=== PATIENT | male | born 1935 | race Two or more races ===

== ENCOUNTER → 2016-08-15 | Outpatient (CLI) | payer OTHER ==
[~2016-08-15] MED LIST: ASPI81CH43; B COTAB20; BENA20TA4; CALC-312; CARB200T4; CHOL10006; GLIP-116; METF100097; METO25TA3; SIMV10TA84; SITA100T7
== END | disposition home or self-care (01) ==
LOC: LAB 08:27
DX: C61 Malignant neoplasm of prostate (principal)
CPT/HCPCS: 84153

== ENCOUNTER → 2016-11-14 | Outpatient (CLI) | payer OTHER ==
[2016-11-14 08:09] LABS: Basophils # (auto) 0 uL; Basophils % (auto) 0.5 % (0.0-2.0); Eosinophils # (auto) 0.2 uL; Eosinophils % (auto) 3.9 % (0.0-7.0); Hematocrit 39.9 % (41.0-53.0); Hemoglobin 13.8 g/dL (13.5-17.5); Lymphocytes # (auto) 1.6 uL; Lymphocytes % (auto) 26.1 % (10.0-50.0); Mean Corpuscular Hemoglobin 32.6 pg (28.0-32.0); Mean Corpuscular Hgb Conc. 34.5 g/dL (32.0-36.0); Mean Corpuscular Volume 94.5 fL (80.0-100.0); Mean Platelet Volume 6.7 fL (7.4-10.4); Monocytes # (auto) 0.3 uL; Monocytes % (auto) 4.9 % (0.0-12.0); Neutrophils # (auto) 4.1 uL; Neutrophils % (auto) 64.6 % (37.0-80.0); Platelet Count (auto) 210 10^3/uL (140-450); Red Cell Distribution Width 14.8 % (11.6-16.0); White Blood Cell 6.3 10^3/uL (4.4-10.8)
[2016-11-14 08:21] LABS: Urine Bilirubin Negative (Negative); Urine Blood Negative /uL (Negative); Urine Color Yellow (Yellow); Urine Glucose Normal (Normal); Urine Ketone Negative (Negative); Urine Nitrite Negative (Negative); Urine RBC <1 /hpf (0 - 3); Urine Urobilinogen Normal (Negative); Urine pH 6.5 (5.0-8.0)
[2016-11-14 08:22] LABS: Albumin 3.8 g/dL (3.4-5.0); BUN/Creatinine Ratio 16.3; Bilirubin, Total 0.6 mg/dL (0.2-1.0); Potassium 4.4 mmol/L (3.5-5.1); Total Protein 7.9 g/dL (6.4-8.2)
[2016-11-14 08:25] LABS: INR 0.94 (0.9-1.15); Partial Thromboplastin Time 28.9 sec (22.64-33.71); Prothrombin Time 10.2 sec (9.37-12.3)
== END | disposition home or self-care (01) ==
LOC: LAB 07:45
PROVIDERS: ATTEND Family Medicine
DX: E78.5 Hyperlipidemia, unspecified (principal)
CPT/HCPCS: 36415; 80053; 80061; 81001; 82043; 83036; 85025; 85610; 85730

== ENCOUNTER → 2017-03-15 | Outpatient (CLI) | payer OTHER ==
[~2017-03-15] MED LIST changes: +BENA20TA14; -BENA20TA4
[2017-03-15 10:07] LABS: Urine Bilirubin Negative (Negative); Urine Blood Negative /uL (Negative); Urine Color Yellow (Yellow); Urine Glucose Normal (Normal); Urine Ketone Negative (Negative); Urine Nitrite Negative (Negative); Urine RBC <1 /hpf (0 - 3); Urine Urobilinogen Normal (Negative)
[2017-03-15 10:08] LABS: Basophils # (auto) 0.1 uL; Basophils % (auto) 1.1 % (0.0-2.0); Eosinophils # (auto) 0.2 uL; Eosinophils % (auto) 2.7 % (0.0-7.0); Hematocrit 38.7 % (41.0-53.0); Hemoglobin 13.3 g/dL (13.5-17.5); Lymphocytes # (auto) 1.5 uL; Lymphocytes % (auto) 25.2 % (10.0-50.0); Mean Corpuscular Hemoglobin 32.6 pg (28.0-32.0); Mean Corpuscular Hgb Conc. 34.4 g/dL (32.0-36.0); Mean Corpuscular Volume 94.7 fL (80.0-100.0); Mean Platelet Volume 6.8 fL (6.9-10.8); Monocytes # (auto) 0.3 uL; Monocytes % (auto) 5.6 % (0.0-12.0); Neutrophils # (auto) 3.9 uL; Neutrophils % (auto) 65.4 % (37.0-80.0); Platelet Count (auto) 167 10^3/uL (140-450); Red Cell Distribution Width 14.8 % (11.8-14.3)
[2017-03-15 10:30] LABS: Albumin 3.8 g/dL (3.4-5.0); BUN/Creatinine Ratio 22.1; Bilirubin, Total 0.6 mg/dL (0.2-1.0); Calcium 8.7 mg/dL (8.5-10.1); Potassium 4.1 mmol/L (3.5-5.1); Total Protein 7.5 g/dL (6.4-8.2)
== END | disposition home or self-care (01) ==
LOC: LAB 09:36
PROVIDERS: ATTEND Family Medicine
DX: N39.0 Urinary tract infection, site not specified (principal)
CPT/HCPCS: 36415; 80053; 81001; 85025; 87086

== ENCOUNTER → 2017-05-07 | Outpatient (CLI) | payer OTHER | END | disposition home or self-care (01) | LOC: LAB 07:40 | PROVIDERS: ATTEND Family Medicine | DX: C61 Malignant neoplasm of prostate (principal); E11.9 Type 2 diabetes mellitus without complications; I10 Essential (primary) hypertension | CPT/HCPCS: 84153 ==

== ENCOUNTER → 2017-08-29 | Outpatient (CLI) | payer OTHER | END | disposition home or self-care (01) | LOC: LAB 08:22 | PROVIDERS: ATTEND Family Medicine | DX: E11.9 Type 2 diabetes mellitus without complications (principal) | CPT/HCPCS: 36415; 83036 ==

== ENCOUNTER → 2017-10-11 | Outpatient (CLI) | payer OTHER | END | disposition home or self-care (01) | LOC: LAB 08:06 | PROVIDERS: ATTEND Family Medicine | DX: C61 Malignant neoplasm of prostate (principal); E11.9 Type 2 diabetes mellitus without complications; I10 Essential (primary) hypertension; E78.5 Hyperlipidemia, unspecified; Z79.899 Other long term (current) drug therapy; Z79.82 Long term (current) use of aspirin | CPT/HCPCS: 84153 ==

== ENCOUNTER → 2018-02-05 | Outpatient (CLI) | payer OTHER ==
[~2018-02-05] MED LIST changes: -METO25TA3; +METO25TA4
== END | disposition home or self-care (01) ==
LOC: XY 08:56
PROVIDERS: ATTEND Podiatrist Foot & Ankle Surgery
DX: M79.606 Pain in leg, unspecified (principal); I73.9 Peripheral vascular disease, unspecified
CPT/HCPCS: 93926

== ENCOUNTER → 2018-04-04 | Outpatient (CLI) | payer OTHER ==
[2018-04-04 08:53] LABS: Basophils # (auto) 0 uL; Basophils % (auto) 0.8 % (0.0-2.0); Eosinophils # (auto) 0.1 uL; Eosinophils % (auto) 2.8 % (0.0-7.0); Hemoglobin 13.9 g/dL (13.5-17.5); Lymphocytes # (auto) 1.4 uL; Lymphocytes % (auto) 28.1 % (10.0-50.0); Mean Corpuscular Hemoglobin 31.7 pg (28.0-32.0); Mean Corpuscular Hgb Conc. 33.9 g/dL (32.0-36.0); Mean Corpuscular Volume 93.7 fL (80.0-100.0); Monocytes # (auto) 0.3 uL; Monocytes % (auto) 5.8 % (0.0-12.0); Neutrophils # (auto) 3.2 uL; Neutrophils % (auto) 62.5 % (37.0-80.0); Nucleated Red Blood Cells % 0.2 %; Platelet Count (auto) 193 10^3/uL (140-450); Red Blood Cells 4.37 10^6/uL (4.5-5.90); Red Cell Distribution Width 14.7 % (11.8-14.3); White Blood Cell 5.1 10^3/uL (4.4-10.8)
[2018-04-04 09:01] LABS: Urine Bacteria NONE SEEN /hpf (None Seen); Urine Blood Negative /uL (Negative); Urine Specific Gravity 1.009 (1.001-1.035); Urine WBC <1 /hpf (0 - 3)
[2018-04-04 09:12] LABS: Albumin 3.8 g/dL (3.4-5.0); Potassium 4.6 mmol/L (3.5-5.1)
[2018-04-04 09:16] LABS: BUN/Creatinine Ratio 18.3; Calcium 9.3 mg/dL (8.5-10.1); Total Protein 8.3 g/dL (6.4-8.2)
[2018-04-04 09:28] LABS: Bilirubin, Total 0.5 mg/dL (0.2-1.0)
== END | disposition home or self-care (01) ==
LOC: LAB 07:53
PROVIDERS: ATTEND Nurse Practitioner
DX: E11.8 Type 2 diabetes mellitus with unspecified complications (principal)
CPT/HCPCS: 36415; 80053; 80061; 81001; 82043; 83036; 84153; 84443; 85025

== ENCOUNTER → 2018-05-02 | Outpatient (CLI) | payer MEDICARE, OTHER | END | disposition home or self-care (01) | LOC: XYW 09:47 | PROVIDERS: ATTEND Internal Medicine | DX: I08.2 Rheumatic disorders of both aortic and tricuspid valves (principal); I73.9 Peripheral vascular disease, unspecified | CPT/HCPCS: 93306 ==

== ENCOUNTER → 2018-05-13 | Outpatient (CLI) | payer OTHER ==
[~2018-05-13] VITALS: Ht 165.1 cm; Wt 74.8 kg
[~2018-05-13] MED LIST changes: +ADENOSINE 63 MG in GIVE UN-DILUTED 0 ML IV STA
[2018-05-13 09:29] VITALS: BP 173/67
== END | disposition home or self-care (01) ==
LOC: XY 06:48
PROVIDERS: ATTEND Internal Medicine
DX: Z01.818 Encounter for other preprocedural examination (principal); I73.9 Peripheral vascular disease, unspecified; I10 Essential (primary) hypertension; E11.9 Type 2 diabetes mellitus without complications
CPT/HCPCS: 78452; 93017; A9500; J0153

== ENCOUNTER → 2018-05-28 | Day surgery (SDC) | payer OTHER ==
[2018-05-24 11:41] LABS: Basophils # (auto) 0.1 uL; Basophils % (auto) 1.3 % (0.0-2.0); Eosinophils # (auto) 0.5 uL; Eosinophils % (auto) 8.2 % (0.0-7.0); Hematocrit 39.4 % (41.0-53.0); Hemoglobin 13.3 g/dL (13.5-17.5); Lymphocytes # (auto) 1.3 uL; Mean Corpuscular Hemoglobin 31.5 pg (28.0-32.0); Mean Corpuscular Hgb Conc. 33.7 g/dL (32.0-36.0); Mean Corpuscular Volume 93.6 fL (80.0-100.0); Monocytes # (auto) 0.3 uL; Monocytes % (auto) 5.5 % (0.0-12.0); Neutrophils # (auto) 3.9 uL; Platelet Count (auto) 183 10^3/uL (140-450); Red Blood Cells 4.21 10^6/uL (4.5-5.90); Red Cell Distribution Width 14.8 % (11.8-14.3)
[2018-05-24 11:52] LABS: INR 0.93 (0.9-1.15); Partial Thromboplastin Time 31.1 sec (23.78-33.04)
[2018-05-24 12:09] LABS: Urine Bacteria NONE SEEN /hpf (None Seen); Urine Blood Negative /uL (Negative); Urine Mucus FEW (None Seen); Urine Specific Gravity 1.024 (1.001-1.035); Urine WBC <1 /hpf (0 - 3)
[2018-05-24 13:01] LABS: Albumin 3.8 g/dL (3.4-5.0); Calcium 9.1 mg/dL (8.5-10.1); Potassium 4.4 mmol/L (3.5-5.1)
[2018-05-24 13:03] LABS: Bilirubin, Total 0.4 mg/dL (0.2-1.0); Total Protein 7.7 g/dL (6.4-8.2)
[~2018-05-28] VITALS: Ht 175.3 cm; Wt 81.6 kg
[~2018-05-28] MED LIST changes: -ADENOSINE 63 MG in GIVE UN-DILUTED 0 ML IV STA; +ALP15OS EACHEYE; -ASPI81CH43; -B COTAB20; -BENA20TA14; +BUPIVACAINE HCL 50 ML ONE; -CALC-312; -CARB200T4; -CHOL10006; +CHOL20007 PO; +DEXAMETHASONE SOD PHOS 10MG/1ML VIAL INJ ONE; -GLIP-116; +GLIP-116 PO; +HYDROmorphone HCL 2 MG/ML VL IV PRN; +KETOROLAC TROMETH 30 MG/ML 1ML VIAL IV ONE; +LABETALOL HCL 5 MG/ML 4ML SYRINGE IV PRN; +LIDOCAINE 1% HCL (LOCAL ANESTH.) INJ 20ML MDV ONE; +METF-372 PO; -METF100097; -METO25TA4; +METO25TA62 PO; +MIDAZOLAM HCL 1MG/1ML-2 ML VIAL IV PRN; +MIDAZOLAM HCL 1MG/1ML-2 ML VIAL ONE; +MORPHINE SULFATE 4 MG/ML SYR/VIAL IV ONE; +MORPHINE SULFATE 4 MG/ML SYR/VIAL IV PRN; +ONDANSETRON HCL 4 MG/2 ML VIAL IV ONE; +PROPOFOL 10 MG/ML 20 ML IV ONE; -SIMV10TA84; +SIMV10TA84 PO; -SITA100T7; +TIMO0.5S38 EACHEYE; +VANCOMYCIN HCL 1000 MG VL ONE; +ePHEDrine SULFATE 50 MG/ML AMP IV PRN; +fentaNYL CITRATE 100 MCG/2 ML VL ONE
[2018-05-28 15:44] VITALS: BP 166/80
== END | disposition home or self-care (01) ==
LOC: SUR 12:09
PROVIDERS: ATTEND Podiatrist
DX: M86.8X7 Other osteomyelitis, ankle and foot (principal); I10 Essential (primary) hypertension; E78.5 Hyperlipidemia, unspecified; I25.119 Atherosclerotic heart disease of native coronary artery with unspecified angina pectoris; E11.622 Type 2 diabetes mellitus with other skin ulcer; L98.499 Non-pressure chronic ulcer of skin of other sites with unspecified severity; Z88.1 Allergy status to other antibiotic agents; Z85.46 Personal history of malignant neoplasm of prostate; Z79.84 Long term (current) use of oral hypoglycemic drugs; Z79.899 Other long term (current) drug therapy; Z90.49 Acquired absence of other specified parts of digestive tract; Z86.73 Personal history of transient ischemic attack (TIA), and cerebral infarction without residual deficits; Z87.891 Personal history of nicotine dependence; Z98.890 Other specified postprocedural states
CPT/HCPCS: 28820; 36415; 80053; 81001; 82962; 85025; 85610; 85730; 88304; 88311; J1100; J2001; J2250; J2704; J3010; J3370; J3490; J7050

== ENCOUNTER → 2018-10-01 | Outpatient (CLI) | payer OTHER ==
[~2018-10-01] MED LIST changes: -BUPIVACAINE HCL 50 ML ONE; -DEXAMETHASONE SOD PHOS 10MG/1ML VIAL INJ ONE; -HYDROmorphone HCL 2 MG/ML VL IV PRN; -KETOROLAC TROMETH 30 MG/ML 1ML VIAL IV ONE; -LABETALOL HCL 5 MG/ML 4ML SYRINGE IV PRN; -LIDOCAINE 1% HCL (LOCAL ANESTH.) INJ 20ML MDV ONE; -MIDAZOLAM HCL 1MG/1ML-2 ML VIAL IV PRN; -MIDAZOLAM HCL 1MG/1ML-2 ML VIAL ONE; -MORPHINE SULFATE 4 MG/ML SYR/VIAL IV ONE; -MORPHINE SULFATE 4 MG/ML SYR/VIAL IV PRN; -ONDANSETRON HCL 4 MG/2 ML VIAL IV ONE; -PROPOFOL 10 MG/ML 20 ML IV ONE; -VANCOMYCIN HCL 1000 MG VL ONE; -ePHEDrine SULFATE 50 MG/ML AMP IV PRN; -fentaNYL CITRATE 100 MCG/2 ML VL ONE
== END | disposition home or self-care (01) ==
LOC: LAB 15:00
PROVIDERS: ATTEND Physician Assistant
DX: C44.329 Squamous cell carcinoma of skin of other parts of face (principal)

== ENCOUNTER → 2018-10-22 | Outpatient (CLI) | payer OTHER ==
[2018-10-22 11:29] LABS: Urine Bacteria NONE SEEN /hpf (None Seen); Urine Blood Negative /uL (Negative); Urine Specific Gravity 1.008 (1.001-1.035); Urine WBC <1 /hpf (0 - 3)
[2018-10-22 11:40] LABS: Albumin 4.1 g/dL (3.4-5.0); BUN/Creatinine Ratio 22.7; Calcium 9.2 mg/dL (8.5-10.1); Potassium 4.6 mmol/L (3.5-5.1); Uric Acid 5.3 mg/dL (3.5-7.2)
[2018-10-22 11:45] LABS: Bilirubin, Total 0.5 mg/dL (0.2-1.0); Total Protein 7.8 g/dL (6.4-8.2)
[2018-10-22 11:56] LABS: Folate (Folic Acid) > 24.00 ng/mL (5.38-24); Prostate Specific Antigen 0.04 ng/mL (0.0-4.0)
== END | disposition home or self-care (01) ==
LOC: LAB 09:17
PROVIDERS: ATTEND Nurse Practitioner
DX: E78.5 Hyperlipidemia, unspecified (principal); E11.29 Type 2 diabetes mellitus with other diabetic kidney complication
CPT/HCPCS: 36415; 80053; 80061; 81001; 82043; 82306; 82607; 82746; 83036; 84153; 84443; 84550

== ENCOUNTER → 2018-11-01 | Outpatient (CLI) | payer OTHER | END | disposition home or self-care (01) | LOC: LAB 15:56 | PROVIDERS: ATTEND Nurse Practitioner | DX: E78.5 Hyperlipidemia, unspecified (principal); E11.29 Type 2 diabetes mellitus with other diabetic kidney complication | CPT/HCPCS: 82270 ==

== ENCOUNTER → 2018-12-03 | Outpatient (CLI) | payer OTHER | END | disposition home or self-care (01) | LOC: XY 10:07 | PROVIDERS: ATTEND Internal Medicine | DX: I65.23 Occlusion and stenosis of bilateral carotid arteries (principal); I10 Essential (primary) hypertension; E11.9 Type 2 diabetes mellitus without complications | CPT/HCPCS: 93886 ==

== ENCOUNTER → 2019-02-06 | Outpatient (CLI) | payer OTHER ==
[~2019-02-06] MED LIST changes: -GLIP-116 PO; +GLIP10TA9 PO; -TIMO0.5S38 EACHEYE; +TIMO0.5S66 EACHEYE
[2019-02-06 08:06] LABS: Basophils # (auto) 0.1 uL; Basophils % (auto) 1.4 % (0.0-2.0); Eosinophils # (auto) 0.2 uL; Eosinophils % (auto) 2.9 % (0.0-7.0); Hematocrit 39.9 % (41.0-53.0); Hemoglobin 13.5 g/dL (13.5-17.5); Lymphocytes # (auto) 1.5 uL; Lymphocytes % (auto) 26.6 % (10.0-50.0); Mean Corpuscular Hemoglobin 31.9 pg (28.0-32.0); Mean Corpuscular Hgb Conc. 33.9 g/dL (32.0-36.0); Monocytes # (auto) 0.3 uL; Monocytes % (auto) 4.7 % (0.0-12.0); Neutrophils # (auto) 3.7 uL; Neutrophils % (auto) 64.4 % (37.0-80.0); Nucleated Red Blood Cells % 0.1 %; Platelet Count (auto) 172 10^3/uL (140-450); Red Blood Cells 4.24 10^6/uL (4.5-5.90); Red Cell Distribution Width 14.5 % (11.8-14.3); White Blood Cell 5.7 10^3/uL (4.4-10.8)
[2019-02-06 08:20] LABS: Urine Bacteria NONE SEEN /hpf (None Seen); Urine Blood Negative /uL (Negative); Urine Specific Gravity 1.011 (1.001-1.035); Urine WBC <1 /hpf (0 - 3)
[2019-02-06 08:35] LABS: Potassium 4.2 mmol/L (3.5-5.1)
[2019-02-06 08:46] LABS: Albumin 3.9 g/dL (3.4-5.0); Bilirubin, Total 0.6 mg/dL (0.2-1.0); Calcium 9.2 mg/dL (8.5-10.1); Total Protein 7.6 g/dL (6.4-8.2)
== END | disposition home or self-care (01) ==
LOC: LAB 07:35
PROVIDERS: ATTEND Nurse Practitioner
DX: E11.9 Type 2 diabetes mellitus without complications (principal); E78.5 Hyperlipidemia, unspecified
CPT/HCPCS: 36415; 80053; 80061; 81001; 82043; 83036; 85025

== ENCOUNTER → 2019-03-13 | Outpatient (CLI) | payer OTHER ==
[2019-03-13 13:10] LABS: Urine WBC None Seen /hpf (0 - 3)
[2019-03-13 13:40] LABS: Urine Bacteria NONE SEEN /hpf (None Seen); Urine Blood Negative /uL (Negative); Urine Specific Gravity 1.015 (1.001-1.035)
== END | disposition home or self-care (01) ==
LOC: LAB 12:23
PROVIDERS: ATTEND Urology
DX: N39.0 Urinary tract infection, site not specified (principal); R32 Unspecified urinary incontinence; E11.9 Type 2 diabetes mellitus without complications; E78.5 Hyperlipidemia, unspecified
CPT/HCPCS: 81001; 84153; 87086

== ENCOUNTER → 2019-07-28 | Outpatient (CLI) | payer OTHER ==
[~2019-07-28] MED LIST changes: -METO25TA62 PO; +METO25TA93 PO
[2019-07-28 09:48] LABS: Urine WBC None Seen /hpf (0 - 3)
[2019-07-28 10:06] LABS: Basophils # (auto) 0 uL; Basophils % (auto) 0.7 % (0.0-2.0); Eosinophils # (auto) 0.1 uL; Eosinophils % (auto) 2.4 % (0.0-7.0); Hematocrit 37.5 % (41.0-53.0); Hemoglobin 12.4 g/dL (13.5-17.5); Lymphocytes # (auto) 1.1 uL; Lymphocytes % (auto) 24.5 % (10.0-50.0); Mean Corpuscular Hemoglobin 29.6 pg (28.0-32.0); Mean Corpuscular Hgb Conc. 33.1 g/dL (32.0-36.0); Mean Corpuscular Volume 89.3 fL (80.0-100.0); Monocytes # (auto) 0.3 uL; Monocytes % (auto) 7.1 % (0.0-12.0); Neutrophils % (auto) 65.3 % (37.0-80.0); Nucleated Red Blood Cells % 0.1 %; Platelet Count (auto) 211 10^3/uL (140-450); Red Blood Cells 4.19 10^6/uL (4.5-5.90); Red Cell Distribution Width 16.3 % (11.8-14.3); White Blood Cell 4.7 10^3/uL (4.4-10.8)
[2019-07-28 10:12] LABS: Urine Bacteria NONE SEEN /hpf (None Seen); Urine Blood Negative /uL (Negative); Urine Specific Gravity 1.012 (1.001-1.035)
[2019-07-28 10:42] LABS: Potassium 4.7 mmol/L (3.5-5.1)
[2019-07-28 10:48] LABS: Folate (Folic Acid) > 24.00 ng/mL (5.38-24)
[2019-07-28 11:00] LABS: BUN/Creatinine Ratio 26.2; Bilirubin, Total 0.5 mg/dL (0.2-1.0); Calcium 9.6 mg/dL (8.5-10.1); Total Protein 8.6 g/dL (6.4-8.2)
== END | disposition home or self-care (01) ==
LOC: LAB 09:28
PROVIDERS: ATTEND Nurse Practitioner
DX: E78.5 Hyperlipidemia, unspecified (principal); E11.22 Type 2 diabetes mellitus with diabetic chronic kidney disease; I10 Essential (primary) hypertension; Z79.899 Other long term (current) drug therapy
CPT/HCPCS: 36415; 80053; 80061; 81001; 82043; 82306; 82607; 82746; 83036; 84443; 85025

== ENCOUNTER → 2019-08-19 | Outpatient (CLI) | payer OTHER | END | disposition home or self-care (01) | LOC: XY 10:58 | PROVIDERS: ATTEND Internal Medicine | DX: I65.23 Occlusion and stenosis of bilateral carotid arteries (principal); R09.89 Other specified symptoms and signs involving the circulatory and respiratory systems | CPT/HCPCS: 93886 ==

== ENCOUNTER → 2019-10-31 | Outpatient (CLI) | payer OTHER ==
[2019-10-31 08:18] LABS: Basophils # (auto) 0 10 ^3/uL (0-0.2); Hemoglobin 7.7 g/dL (13.5-17.5); Lymphocytes # (auto) 1.1 10 ^3/uL (0.4-5.4); Monocytes # (auto) 0.3 10 ^3/uL (0-1.3); Neutrophils # (auto) 3.2 10 ^3/uL (1.6-8.6); Nucleated Red Blood Cells % 0.1 %
[2019-10-31 08:20] LABS: Basophils % (auto) 0.7 % (0.0-2.0); Eosinophils # (auto) 0.2 10 ^3/uL (0-0.8); Eosinophils % (auto) 3.1 % (0.0-7.0); Hematocrit 26.1 % (41.0-53.0); Lymphocytes % (auto) 23.1 % (10.0-50.0); Mean Corpuscular Hemoglobin 22.2 pg (28.0-32.0); Mean Corpuscular Hgb Conc. 29.5 g/dL (32.0-36.0); Mean Corpuscular Volume 75.2 fL (80.0-100.0); Monocytes % (auto) 7.1 % (0.0-12.0); Platelet Count (auto) 249 10^3/uL (140-450); Red Blood Cells 3.47 10^6/uL (4.5-5.90); Red Cell Distribution Width 18.5 % (11.8-14.3); White Blood Cell 4.9 10^3/uL (4.4-10.8)
[2019-10-31 09:10] LABS: Albumin 3.3 g/dL (3.4-5.0); Calcium 8.7 mg/dL (8.5-10.1); Potassium 4.3 mmol/L (3.5-5.1)
[2019-10-31 09:16] LABS: Bilirubin, Total 0.3 mg/dL (0.2-1.0); Total Protein 7.4 g/dL (6.4-8.2)
== END | disposition home or self-care (01) ==
LOC: LAB 08:00
PROVIDERS: ATTEND Nurse Practitioner
DX: E11.9 Type 2 diabetes mellitus without complications (principal); E78.5 Hyperlipidemia, unspecified
CPT/HCPCS: 36415; 80053; 80061; 83036; 85025

== ENCOUNTER → 2019-11-10 | Outpatient (CLI) | payer OTHER | END | disposition home or self-care (01) | LOC: LAB 11:09 | PROVIDERS: ATTEND Nurse Practitioner | DX: Z85.46 Personal history of malignant neoplasm of prostate (principal) | CPT/HCPCS: 84153 ==

== ENCOUNTER 2019-12-04 15:00 | Inpatient (IN) | payer MEDICARE, OTHER ==
[2019-12-04] VITALS (7 sets, daily range): BP systolic 128–147; BP diastolic 66–76
[~2019-12-04] VITALS: Ht 160 cm; Wt 99.6 kg
[2019-12-04 15:44] LABS: Basophils # (auto) 0.1 10 ^3/uL (0-0.2); Basophils % (auto) 1.2 % (0.0-2.0); Eosinophils # (auto) 0.1 10 ^3/uL (0-0.8); Monocytes # (auto) 0.4 10 ^3/uL (0-1.3); Nucleated Red Blood Cells % 0.1 %
[2019-12-04 15:46] LABS: Eosinophils % (auto) 1.7 % (0.0-7.0); Hematocrit 20.2 % (41.0-53.0); Lymphocytes # (auto) 1.4 10 ^3/uL (0.4-5.4); Lymphocytes % (auto) 25.6 % (10.0-50.0); Mean Corpuscular Hemoglobin 20.3 pg (28.0-32.0); Mean Corpuscular Hgb Conc. 30.2 g/dL (32.0-36.0); Mean Corpuscular Volume 67.4 fL (80.0-100.0); Monocytes % (auto) 7.9 % (0.0-12.0); Neutrophils # (auto) 3.6 10 ^3/uL (1.6-8.6); Neutrophils % (auto) 63.6 % (37.0-80.0); Platelet Count (auto) 282 10^3/uL (140-450); Red Cell Distribution Width 19.2 % (11.8-14.3); White Blood Cell 5.7 10^3/uL (4.4-10.8)
[2019-12-04 16:02] LABS: BUN/Creatinine Ratio 22.5; Calcium 8.4 mg/dL (8.5-10.1); Potassium 4.8 mmol/L (3.5-5.1)
[2019-12-04 16:04] LABS: Bilirubin, Total 0.3 mg/dL (0.2-1.0); Hemoglobin 6.1 g/dL (13.5-17.5)
[2019-12-04] MEDS ORDERED: MORPHINE SULF INJ 2 MG/ML SYRINGE 1ML IV PRN (16:45)
[2019-12-04] MEDS ORDERED: NITROGLYCERIN 0.4 MG SL TAB SL PRN (16:45)
[2019-12-04] MEDS ORDERED: DEXTROSE (50%) 50ML SYRG IV PRN (17:00)
[2019-12-04] MEDS ORDERED: PANTOPRAZOLE 40 MG/10 ML VIAL INJ IV ONE (17:00)
[2019-12-04] MEDS ORDERED: levoFLOXacin 500MG 100 ML IV ONE (17:00)
[2019-12-04] MEDS: InsuLIN REG 1unit/0.01ml Soln (100units/ml) SC SCH ×2 (17:00→22:00)
[2019-12-04] MEDS: ACCU-CHEK COMFORT CURVE STRIP VI SCH ×2 (17:09→22:42)
[2019-12-04] MEDS: SODIUM CHLORIDE 0.9% 1,000 ML IV SCH (17:20)
[2019-12-04 17:40] LABS: CRP High Sensitivity 0.38 mg/dL (< 0.3)
[2019-12-04 19:13] LABS: Hemoglobin 5.6 g/dL (13.5-17.5)
[2019-12-04] MEDS: metroNIDAZOLE 500MG/100ML 100 ML IV SCH (22:40)
[2019-12-04] MEDS: PANTOPRAZOLE 40 MG TAB PO SCH (22:41)
[2019-12-05] VITALS (11 sets, daily range): BP systolic 128–155; BP diastolic 64–88
[2019-12-05 00:55] LABS: Hematocrit 23.3 % (41.0-53.0); Hemoglobin 7.1 g/dL (13.5-17.5)
[2019-12-05] MEDS: SODIUM CHLORIDE 0.9% 1,000 ML IV SCH ×3 (02:21→22:55)
[2019-12-05] MEDS: ACETAMINOPHEN 500 MG TAB PO PRN ×3 (02:21→21:48)
[2019-12-05 06:15] LABS: Basophils # (auto) 0 10 ^3/uL (0-0.2); Eosinophils # (auto) 0 10 ^3/uL (0-0.8); Lymphocytes # (auto) 0.8 10 ^3/uL (0.4-5.4); Monocytes # (auto) 0.3 10 ^3/uL (0-1.3); Neutrophils # (auto) 3.1 10 ^3/uL (1.6-8.6); White Blood Cell 4.3 10^3/uL (4.4-10.8)
[2019-12-05 06:19] LABS: Hematocrit 23.6 % (41.0-53.0); Hemoglobin 7.2 g/dL (13.5-17.5); Lymphocytes % (auto) 19.4 % (10.0-50.0); Mean Corpuscular Hemoglobin 21.4 pg (28.0-32.0); Mean Corpuscular Hgb Conc. 30.6 g/dL (32.0-36.0); Mean Corpuscular Volume 69.9 fL (80.0-100.0); Monocytes % (auto) 6.9 % (0.0-12.0); Neutrophils % (auto) 71.7 % (37.0-80.0); Nucleated Red Blood Cells % 0.1 %; Platelet Count (auto) 237 10^3/uL (140-450); Red Blood Cells 3.38 10^6/uL (4.5-5.90)
[2019-12-05] MEDS: metroNIDAZOLE 500MG/100ML 100 ML IV SCH (06:45)
[2019-12-05] MEDS: ACCU-CHEK COMFORT CURVE STRIP VI SCH ×4 (06:45→21:47)
[2019-12-05] MEDS: InsuLIN REG 1unit/0.01ml Soln (100units/ml) SC SCH ×4 (06:45→22:28)
[2019-12-05 06:57] LABS: Red Cell Distribution Width 20.3 % (11.8-14.3)
[2019-12-05] MEDS ORDERED: levoFLOXacin 500MG 100 ML IV SCH (10:00)
[2019-12-05] MEDS: PANTOPRAZOLE 40 MG TAB PO SCH ×2 (10:14→21:48)
[2019-12-05 11:32] LABS: % Iron Saturation 3.4 % (20-55)
[2019-12-05 11:36] LABS: BUN/Creatinine Ratio 18.8; Calcium 8.5 mg/dL (8.5-10.1); Magnesium 2.4 mg/dL (1.6-2.6); Potassium 3.9 mmol/L (3.5-5.1)
[2019-12-05 12:55] LABS: Urine Bacteria NONE SEEN /hpf (None Seen); Urine Blood Negative /uL (Negative); Urine Specific Gravity 1.013 (1.001-1.035); Urine WBC <1 /hpf (0 - 3)
[2019-12-05 13:20] LABS: INR 1.07 (0.9-1.15)
[2019-12-05 13:39] LABS: Partial Thromboplastin Time 25.6 sec (23.64-32.05)
[2019-12-05 18:48] LABS: Hematocrit 26.5 % (41.0-53.0); Hemoglobin 8.1 g/dL (13.5-17.5)
[2019-12-05] MEDS ORDERED: POLYETHYLENE GLYCOL 17 GM PWDR PO ONE (23:15)
[2019-12-06 05:30] VITALS: BP 137/69
[2019-12-06] MEDS: ACCU-CHEK COMFORT CURVE STRIP VI SCH ×4 (06:37→22:18)
[2019-12-06] MEDS: InsuLIN REG 1unit/0.01ml Soln (100units/ml) SC SCH ×4 (06:37→22:17)
[2019-12-06 08:21] LABS: Eosinophils # (auto) 0.1 10 ^3/uL (0-0.8); Hemoglobin 8.6 g/dL (13.5-17.5); Lymphocytes # (auto) 0.5 10 ^3/uL (0.4-5.4); Monocytes # (auto) 0.3 10 ^3/uL (0-1.3); Neutrophils # (auto) 4.1 10 ^3/uL (1.6-8.6)
[2019-12-06 08:30] LABS: Basophils # (auto) 0.1 10 ^3/uL (0-0.2); Basophils % (auto) 1.1 % (0.0-2.0); Eosinophils % (auto) 1.2 % (0.0-7.0); Hematocrit 27.4 % (41.0-53.0); Lymphocytes % (auto) 10.2 % (10.0-50.0); Mean Corpuscular Hemoglobin 22.2 pg (28.0-32.0); Mean Corpuscular Hgb Conc. 31.4 g/dL (32.0-36.0); Mean Corpuscular Volume 70.7 fL (80.0-100.0); Monocytes % (auto) 6.1 % (0.0-12.0); Neutrophils % (auto) 81.4 % (37.0-80.0); Nucleated Red Blood Cells % 0.2 %; Platelet Count (auto) 214 10^3/uL (140-450); Red Blood Cells 3.88 10^6/uL (4.5-5.90)
[2019-12-06 08:34] LABS: Calcium 8.4 mg/dL (8.5-10.1); Potassium 3.6 mmol/L (3.5-5.1)
[2019-12-06 09:00] VITALS: BP 136/77
[2019-12-06] MEDS: PANTOPRAZOLE 40 MG TAB PO SCH ×2 (10:18→22:16)
[2019-12-06] MEDS ORDERED: DIGOXIN (250MCG/ML) 2 ML AMPULE IV ONE (12:45)
[2019-12-06 13:00] VITALS: BP 114/53
[2019-12-06] MEDS ORDERED: AMIODARONE HCL 150 MG in D5W 5% 100 ML IV ONE (13:30)
[2019-12-06] MEDS ORDERED: METOPROLOL TARTRATE 25 MG TAB PO ONE (13:30)
[2019-12-06] MEDS ORDERED: AMIODARONE 450mg/250ml AE 250 ML IV SCH ×2 (13:45→19:45)
[2019-12-06] MEDS ORDERED: OPTISON 3ml Vial for INJ IV ONE (15:23)
[2019-12-06 17:04] VITALS: BP 108/58
[2019-12-06 22:00] VITALS: BP 116/60
[2019-12-06] MEDS: METOPROLOL TARTRATE 25 MG TAB PO SCH (22:16)
[2019-12-06] MEDS: LORazepam 0.5 MG TAB PO PRN (22:18)
[2019-12-07] MEDS ORDERED: AMIODARONE HCL 900 MG IV ONE (03:58)
[2019-12-07 05:00] VITALS: BP 114/62
[2019-12-07] MEDS: InsuLIN REG 1unit/0.01ml Soln (100units/ml) SC SCH ×4 (06:34→22:47)
[2019-12-07] MEDS: ACCU-CHEK COMFORT CURVE STRIP VI SCH ×4 (06:36→22:47)
[2019-12-07 06:48] LABS: Basophils # (auto) 0 10 ^3/uL (0-0.2); Eosinophils # (auto) 0.1 10 ^3/uL (0-0.8); Hemoglobin 7.8 g/dL (13.5-17.5); Mean Corpuscular Hgb Conc. 30.3 g/dL (32.0-36.0); Monocytes # (auto) 0.5 10 ^3/uL (0-1.3); Neutrophils # (auto) 4.9 10 ^3/uL (1.6-8.6); White Blood Cell 6.6 10^3/uL (4.4-10.8)
[2019-12-07 06:50] LABS: Basophils % (auto) 0.5 % (0.0-2.0); Eosinophils % (auto) 1.2 % (0.0-7.0); Hematocrit 25.8 % (41.0-53.0); Lymphocytes # (auto) 1.1 10 ^3/uL (0.4-5.4); Lymphocytes % (auto) 16.8 % (10.0-50.0); Mean Corpuscular Hemoglobin 21.5 pg (28.0-32.0); Mean Corpuscular Volume 70.9 fL (80.0-100.0); Monocytes % (auto) 7.4 % (0.0-12.0); Neutrophils % (auto) 74.1 % (37.0-80.0); Nucleated Red Blood Cells % 0.1 %; Platelet Count (auto) 215 10^3/uL (140-450); Red Blood Cells 3.64 10^6/uL (4.5-5.90)
[2019-12-07 06:57] LABS: Red Cell Distribution Width 21.9 % (11.8-14.3)
[2019-12-07 09:00] VITALS: BP 119/54
[2019-12-07] MEDS: METOPROLOL TARTRATE 25 MG TAB PO SCH ×2 (09:29→22:48)
[2019-12-07] MEDS: PANTOPRAZOLE 40 MG TAB PO SCH ×2 (09:29→22:48)
[2019-12-07] MEDS ORDERED: GOLYTELY 4L KIT PO ONE (11:00)
[2019-12-07] MEDS: ACETAMINOPHEN 500 MG TAB PO PRN ×2 (12:59→22:48)
[2019-12-07 13:00] VITALS: BP 110/54
[2019-12-07] MEDS ORDERED: POTASSIUM CHL 20 Meq TABLET PO ONE (13:00)
[2019-12-07 17:00] VITALS: BP 123/61
[2019-12-08 05:41] VITALS: BP 150/83
[2019-12-08 06:06] LABS: Basophils # (auto) 0 10 ^3/uL (0-0.2); Hematocrit 25.8 % (41.0-53.0); Hemoglobin 7.9 g/dL (13.5-17.5); Lymphocytes # (auto) 0.8 10 ^3/uL (0.4-5.4); Mean Corpuscular Hgb Conc. 30.4 g/dL (32.0-36.0); Mean Corpuscular Volume 70.9 fL (80.0-100.0); Red Blood Cells 3.64 10^6/uL (4.5-5.90)
[2019-12-08 06:09] LABS: Basophils % (auto) 0.9 % (0.0-2.0); Eosinophils # (auto) 0.2 10 ^3/uL (0-0.8); Eosinophils % (auto) 3.1 % (0.0-7.0); Mean Corpuscular Hemoglobin 21.6 pg (28.0-32.0); Monocytes # (auto) 0.3 10 ^3/uL (0-1.3); Neutrophils # (auto) 3.6 10 ^3/uL (1.6-8.6); Platelet Count (auto) 219 10^3/uL (140-450); Red Cell Distribution Width 22.1 % (11.8-14.3)
[2019-12-08 06:23] LABS: Potassium 3.9 mmol/L (3.5-5.1)
[2019-12-08 06:27] LABS: BUN/Creatinine Ratio 22.8; Calcium 8.6 mg/dL (8.5-10.1)
[2019-12-08] MEDS: InsuLIN REG 1unit/0.01ml Soln (100units/ml) SC SCH ×4 (06:33→21:59)
[2019-12-08] MEDS: ACCU-CHEK COMFORT CURVE STRIP VI SCH ×4 (06:36→21:59)
[2019-12-08 09:00] VITALS: BP 140/61
[2019-12-08] MEDS: PANTOPRAZOLE 40 MG TAB PO SCH ×2 (09:42→21:59)
[2019-12-08] MEDS: METOPROLOL TARTRATE 25 MG TAB PO SCH ×2 (09:43→21:58)
[2019-12-08] MEDS: ACETAMINOPHEN 500 MG TAB PO PRN ×2 (09:47→17:06)
[2019-12-08] MEDS ORDERED: GOLYTELY 4L KIT PO ONE (10:00)
[2019-12-08 13:00] VITALS: BP 125/64
[2019-12-08 16:47] VITALS: BP 119/55
[2019-12-08] MEDS: LORazepam 0.5 MG TAB PO PRN (20:35)
[2019-12-08 21:00] VITALS: BP 130/80
[2019-12-09] MEDS: ACETAMINOPHEN 500 MG TAB PO PRN (01:12)
[2019-12-09 04:30] VITALS: BP 128/68
[2019-12-09 05:51] LABS: Eosinophils # (auto) 0.2 10 ^3/uL (0-0.8); Monocytes # (auto) 0.4 10 ^3/uL (0-1.3); Nucleated Red Blood Cells % 0.1 %; White Blood Cell 5.5 10^3/uL (4.4-10.8)
[2019-12-09 05:59] LABS: Basophils # (auto) 0 10 ^3/uL (0-0.2); Basophils % (auto) 0.9 % (0.0-2.0); Eosinophils % (auto) 2.9 % (0.0-7.0); Hematocrit 24.3 % (41.0-53.0); Hemoglobin 7.7 g/dL (13.5-17.5); Lymphocytes % (auto) 18.2 % (10.0-50.0); Mean Corpuscular Hemoglobin 22.2 pg (28.0-32.0); Mean Corpuscular Hgb Conc. 31.7 g/dL (32.0-36.0); Neutrophils # (auto) 3.9 10 ^3/uL (1.6-8.6); Platelet Count (auto) 211 10^3/uL (140-450); Red Blood Cells 3.47 10^6/uL (4.5-5.90)
[2019-12-09 06:10] LABS: INR 1.09 (0.9-1.15)
[2019-12-09 06:19] LABS: Potassium 3.3 mmol/L (3.5-5.1)
[2019-12-09 06:27] LABS: Albumin 2.8 g/dL (3.4-5.0); BUN/Creatinine Ratio 22.9; Bilirubin, Total 0.4 mg/dL (0.2-1.0); Calcium 8.6 mg/dL (8.5-10.1); Total Protein 6.4 g/dL (6.4-8.2)
[2019-12-09] MEDS: InsuLIN REG 1unit/0.01ml Soln (100units/ml) SC SCH ×4 (06:28→23:53)
[2019-12-09] MEDS: ACCU-CHEK COMFORT CURVE STRIP VI SCH ×4 (06:29→23:52)
[2019-12-09 06:45] LABS: Red Cell Distribution Width 22.3 % (11.8-14.3)
[2019-12-09 09:07] VITALS: BP 118/76
[2019-12-09] MEDS ORDERED: MIDAZOLAM HCL 1MG/1ML-2 ML VIAL ONE (09:22)
[2019-12-09] MEDS ORDERED: PROPOFOL 10 MG/ML 20 ML IV ONE (09:22)
[2019-12-09] MEDS ORDERED: GLYCOPYRROLATE 0.2 MG/ML 1ML VIAL ONE (09:22)
[2019-12-09] MEDS ORDERED: ONDANSETRON HCL 4 MG/2 ML VIAL ONE (09:22)
[2019-12-09] MEDS ORDERED: POTASSIUM CHLORIDE 40 MEQ, LIDOCAINE 1% (LOCAL ANESTH.) 4 ML in SODIUM CHL 0.9% 100 ML IV ONE (10:45)
[2019-12-09] MEDS ORDERED: ONDANSETRON HCL 4 MG/2 ML VIAL IV PRN (10:45)
[2019-12-09] MEDS ORDERED: MORPHINE SULF INJ 2 MG/ML SYRINGE 1ML IV PRN (10:45)
[2019-12-09] MEDS: PANTOPRAZOLE 40 MG TAB PO SCH ×2 (12:44→22:20)
[2019-12-09] MEDS: METOPROLOL TARTRATE 25 MG TAB PO SCH ×2 (12:45→22:21)
[2019-12-09 13:00] VITALS: BP 146/70
[2019-12-09 17:03] VITALS: BP 134/64
[2019-12-09] MEDS ORDERED: TPN PER PHARMACY 0 ML IV SCH (18:15)
[2019-12-09] MEDS ORDERED: METOCLOPRAMIDE HCL 5MG/ml INJ 2ml VIAL IV ONE (18:30)
[2019-12-09] MEDS ORDERED: CLINIMIX PER PHARMACY IV NR (20:00)
[2019-12-10] MEDS ORDERED: DEXTROSE (50%) 50ML SYRG IV SCH
[2019-12-10 05:00] VITALS: BP 126/55
[2019-12-10] MEDS: ACCU-CHEK COMFORT CURVE STRIP VI SCH ×3 (06:30→17:25)
[2019-12-10] MEDS: InsuLIN REG 1unit/0.01ml Soln (100units/ml) SC SCH ×3 (06:30→17:27)
[2019-12-10 07:42] LABS: Basophils # (auto) 0 10 ^3/uL (0-0.2); Eosinophils # (auto) 0 10 ^3/uL (0-0.8); Lymphocytes # (auto) 0.9 10 ^3/uL (0.4-5.4); Monocytes # (auto) 0.4 10 ^3/uL (0-1.3); Monocytes % (auto) 6.6 % (0.0-12.0); Neutrophils # (auto) 5.2 10 ^3/uL (1.6-8.6); Platelet Count (auto) 210 10^3/uL (140-450)
[2019-12-10 07:46] LABS: Basophils % (auto) 0.6 % (0.0-2.0); Eosinophils % (auto) 0.7 % (0.0-7.0); Hemoglobin 7.1 g/dL (13.5-17.5); Lymphocytes % (auto) 13.5 % (10.0-50.0); Mean Corpuscular Hemoglobin 21.7 pg (28.0-32.0); Mean Corpuscular Hgb Conc. 30.8 g/dL (32.0-36.0); Mean Corpuscular Volume 70.4 fL (80.0-100.0); Neutrophils % (auto) 78.6 % (37.0-80.0); Red Blood Cells 3.27 10^6/uL (4.5-5.90); White Blood Cell 6.6 10^3/uL (4.4-10.8)
[2019-12-10 08:02] LABS: Potassium 3.4 mmol/L (3.5-5.1)
[2019-12-10 08:13] LABS: Albumin 2.5 g/dL (3.4-5.0); BUN/Creatinine Ratio 24.5; Bilirubin, Total 0.3 mg/dL (0.2-1.0); Calcium 8.5 mg/dL (8.5-10.1); Magnesium 2.2 mg/dL (1.6-2.6); Phosphorus 2.9 mg/dL (2.5-4.90); Pre Albumin 10.8 mg/dL (20.0-40.0); Total Protein 5.8 g/dL (6.4-8.2)
[2019-12-10 09:00] VITALS: BP 114/54
[2019-12-10] MEDS: ACETAMINOPHEN 500 MG TAB PO PRN ×2 (09:52→17:25)
[2019-12-10] MEDS: METOPROLOL TARTRATE 25 MG TAB PO SCH ×2 (09:52→21:57)
[2019-12-10] MEDS: PANTOPRAZOLE 40 MG TAB PO SCH ×2 (09:52→21:58)
[2019-12-10] MEDS ORDERED: POTASSIUM CHLORIDE 40 MEQ, LIDOCAINE 1% (LOCAL ANESTH.) 4 ML in SODIUM CHL 0.9% 100 ML IV ONE (12:00)
[2019-12-10 13:00] VITALS: BP 107/58
[2019-12-10] MEDS: LORazepam 0.5 MG TAB PO PRN (15:07)
[2019-12-10] MEDS ORDERED: LIDOCAINE 1% (LOCAL ANESTH.) PF 5ml SDV ID ONE (16:00)
[2019-12-10] MEDS ORDERED: TPN PER PHARMACY IV NR ×8 (20:00)
[2019-12-10] MEDS: SODIUM CHLOR 0.9% PF (SALINE LOCK) 10ML VIAL/SYR IV SCH (21:57)
[2019-12-10 22:20] VITALS: BP 145/67
[2019-12-11] MEDS: InsuLIN REG 1unit/0.01ml Soln (100units/ml) SC SCH ×4 (00:30→17:37)
[2019-12-11] MEDS: ACCU-CHEK COMFORT CURVE STRIP VI SCH ×4 (00:30→11:50)
[2019-12-11 05:00] VITALS: BP 122/60
[2019-12-11 07:27] LABS: Hemoglobin 7.3 g/dL (13.5-17.5)
[2019-12-11 07:30] LABS: Hematocrit 23.9 % (41.0-53.0)
[2019-12-11 07:37] LABS: Albumin 2.6 g/dL (3.4-5.0); Calcium 8.4 mg/dL (8.5-10.1); Magnesium 1.8 mg/dL (1.6-2.6); Potassium 3.9 mmol/L (3.5-5.1)
[2019-12-11 07:39] LABS: BUN/Creatinine Ratio 22.2
[2019-12-11 07:42] LABS: Bilirubin, Total 0.3 mg/dL (0.2-1.0); Phosphorus 2.3 mg/dL (2.5-4.90); Total Protein 6.4 g/dL (6.4-8.2)
[2019-12-11 09:00] VITALS: BP 139/92
[2019-12-11] MEDS: PANTOPRAZOLE 40 MG TAB PO SCH ×2 (09:44→22:07)
[2019-12-11] MEDS: METOPROLOL TARTRATE 25 MG TAB PO SCH ×2 (09:45→22:07)
[2019-12-11] MEDS: SODIUM CHLOR 0.9% PF (SALINE LOCK) 10ML VIAL/SYR IV SCH ×2 (09:47→20:59)
[2019-12-11] MEDS: ACETAMINOPHEN 500 MG TAB PO PRN ×2 (09:58→17:36)
[2019-12-11] MEDS ORDERED: SODIUM PHOSPHATES 20 MEQ in SODIUM CHL 0.9% 100 ML IV ONE (12:30)
[2019-12-11 13:00] VITALS: BP 135/66
[2019-12-11] MEDS: LORazepam 0.5 MG TAB PO PRN (15:17)
[2019-12-11 17:00] VITALS: BP 136/73
[2019-12-11] MEDS ORDERED: TPN PER PHARMACY IV NR ×11 (20:00)
[2019-12-11 22:00] VITALS: BP 153/68
[2019-12-12] MEDS: ACCU-CHEK COMFORT CURVE STRIP VI SCH ×4 (00:06→18:27)
[2019-12-12] MEDS: InsuLIN REG 1unit/0.01ml Soln (100units/ml) SC SCH ×4 (00:07→18:35)
[2019-12-12 05:00] VITALS: BP 133/83
[2019-12-12 05:35] LABS: Potassium 3.4 mmol/L (3.5-5.1)
[2019-12-12 05:45] LABS: Albumin 2.5 g/dL (3.4-5.0); BUN/Creatinine Ratio 22.4; Calcium 8.1 mg/dL (8.5-10.1)
[2019-12-12 05:48] LABS: Bilirubin, Total 0.3 mg/dL (0.2-1.0); Magnesium 1.8 mg/dL (1.6-2.6); Phosphorus 3.1 mg/dL (2.5-4.90); Total Protein 6.3 g/dL (6.4-8.2)
[2019-12-12] MEDS: ACETAMINOPHEN 500 MG TAB PO PRN ×2 (06:51)
[2019-12-12] MEDS: METOPROLOL TARTRATE 25 MG TAB PO SCH ×2 (08:35→21:20)
[2019-12-12] MEDS: PANTOPRAZOLE 40 MG TAB PO SCH ×2 (08:35→21:20)
[2019-12-12 09:00] VITALS: BP 145/67
[2019-12-12] MEDS ORDERED: INSULIN LANTUS (GLARGINE) 1 /0.01ml (100units/ml) SC SCH (10:00)
[2019-12-12] MEDS: LORazepam 0.5 MG TAB PO PRN ×2 (10:57)
[2019-12-12] MEDS: SODIUM CHLOR 0.9% PF (SALINE LOCK) 10ML VIAL/SYR IV SCH ×2 (11:05→21:16)
[2019-12-12 13:00] VITALS: BP 139/90
[2019-12-12] MEDS: MORPHINE SULF INJ 2 MG/ML SYRINGE 1ML IV PRN ×2 (16:45→21:29)
[2019-12-12 16:53] VITALS: BP 152/99
[2019-12-12] MEDS ORDERED: TPN PER PHARMACY IV NR ×11 (20:00)
[2019-12-12 21:55] VITALS: BP 131/72
[2019-12-13] VITALS (8 sets, daily range): BP systolic 117–159; BP diastolic 60–90
[2019-12-13] MEDS: ACCU-CHEK COMFORT CURVE STRIP VI SCH ×4 (00:13→18:07)
[2019-12-13] MEDS: InsuLIN REG 1unit/0.01ml Soln (100units/ml) SC SCH ×4 (00:20→18:11)
[2019-12-13] MEDS: MORPHINE SULF INJ 2 MG/ML SYRINGE 1ML IV PRN ×3 (01:12→18:29)
[2019-12-13 05:55] LABS: Hematocrit 24.6 % (41.0-53.0)
[2019-12-13 06:00] LABS: Hemoglobin 7.3 g/dL (13.5-17.5)
[2019-12-13 08:29] LABS: Albumin 2.6 g/dL (3.4-5.0); BUN/Creatinine Ratio 18.9; Calcium 8.1 mg/dL (8.5-10.1); Magnesium 1.9 mg/dL (1.6-2.6); Potassium 3.7 mmol/L (3.5-5.1)
[2019-12-13 08:32] LABS: Bilirubin, Total 0.3 mg/dL (0.2-1.0); Phosphorus 2.9 mg/dL (2.5-4.90); Total Protein 6.5 g/dL (6.4-8.2)
[2019-12-13] MEDS: PANTOPRAZOLE 40 MG TAB PO SCH ×2 (10:41→20:42)
[2019-12-13] MEDS: METOPROLOL TARTRATE 25 MG TAB PO SCH ×2 (10:41→20:43)
[2019-12-13] MEDS: SODIUM CHLOR 0.9% PF (SALINE LOCK) 10ML VIAL/SYR IV SCH ×2 (10:41→20:43)
[2019-12-13] MEDS: INSULIN LANTUS (GLARGINE) 1 /0.01ml (100units/ml) SC SCH (10:46)
[2019-12-13] MEDS ORDERED: TPN PER PHARMACY IV NR ×13 (20:00)
[2019-12-14] MEDS: ACETAMINOPHEN 500 MG TAB PO PRN (01:07)
[2019-12-14] MEDS: ACCU-CHEK COMFORT CURVE STRIP VI SCH ×4 (01:07→18:43)
[2019-12-14] MEDS: InsuLIN REG 1unit/0.01ml Soln (100units/ml) SC SCH ×4 (01:09→18:44)
[2019-12-14 05:21] VITALS: BP 151/68
[2019-12-14 05:54] LABS: Basophils # (auto) 0.1 10 ^3/uL (0-0.2); Basophils % (auto) 1.4 % (0.0-2.0); Monocytes # (auto) 0.4 10 ^3/uL (0-1.3)
[2019-12-14 05:58] LABS: Eosinophils # (auto) 0.2 10 ^3/uL (0-0.8); Hematocrit 26.2 % (41.0-53.0); Hemoglobin 8.6 g/dL (13.5-17.5); Lymphocytes # (auto) 0.6 10 ^3/uL (0.4-5.4); Lymphocytes % (auto) 15.5 % (10.0-50.0); Mean Corpuscular Hemoglobin 22.9 pg (28.0-32.0); Mean Corpuscular Hgb Conc. 32.7 g/dL (32.0-36.0); Monocytes % (auto) 9.7 % (0.0-12.0); Neutrophils # (auto) 2.7 10 ^3/uL (1.6-8.6); Neutrophils % (auto) 69.4 % (37.0-80.0); Nucleated Red Blood Cells % 0.1 %; Platelet Count (auto) 183 10^3/uL (140-450); Red Blood Cells 3.74 10^6/uL (4.5-5.90); White Blood Cell 3.9 10^3/uL (4.4-10.8)
[2019-12-14 06:03] LABS: Red Cell Distribution Width 23.3 % (11.8-14.3)
[2019-12-14 06:27] LABS: Albumin 2.6 g/dL (3.4-5.0); BUN/Creatinine Ratio 24.5; Calcium 8.2 mg/dL (8.5-10.1); Magnesium 2.2 mg/dL (1.6-2.6); Potassium 3.8 mmol/L (3.5-5.1)
[2019-12-14 06:40] LABS: Bilirubin, Total 0.5 mg/dL (0.2-1.0); Phosphorus 2.9 mg/dL (2.5-4.90); Total Protein 6.4 g/dL (6.4-8.2)
[2019-12-14] MEDS: LORazepam 0.5 MG TAB PO PRN ×2 (08:39→16:41)
[2019-12-14 09:00] VITALS: BP 107/88
[2019-12-14] MEDS: SODIUM CHLOR 0.9% PF (SALINE LOCK) 10ML VIAL/SYR IV SCH ×2 (09:02→20:38)
[2019-12-14] MEDS: METOPROLOL TARTRATE 25 MG TAB PO SCH ×2 (09:03→20:26)
[2019-12-14] MEDS: PANTOPRAZOLE 40 MG TAB PO SCH ×2 (09:03→20:25)
[2019-12-14] MEDS: INSULIN LANTUS (GLARGINE) 1 /0.01ml (100units/ml) SC SCH (11:11)
[2019-12-14] MEDS ORDERED: GOLYTELY 4L KIT PO ONE (12:45)
[2019-12-14 13:00] VITALS: BP 134/66
[2019-12-14 17:00] VITALS: BP 143/85
[2019-12-14] MEDS ORDERED: TPN PER PHARMACY IV NR ×11 (20:00)
[2019-12-14 22:00] VITALS: BP 150/88
[2019-12-15] MEDS: ACCU-CHEK COMFORT CURVE STRIP VI SCH ×4 (01:54→17:18)
[2019-12-15] MEDS: InsuLIN REG 1unit/0.01ml Soln (100units/ml) SC SCH ×4 (01:58→18:00)
[2019-12-15 05:00] VITALS: BP 148/78
[2019-12-15 05:35] LABS: Eosinophils # (auto) 0 10 ^3/uL (0-0.8); Hemoglobin 9.2 g/dL (13.5-17.5); Monocytes # (auto) 0.4 10 ^3/uL (0-1.3)
[2019-12-15 05:37] LABS: Basophils # (auto) 0.1 10 ^3/uL (0-0.2); Basophils % (auto) 0.9 % (0.0-2.0); Eosinophils % (auto) 0.4 % (0.0-7.0); Hematocrit 29.2 % (41.0-53.0); Lymphocytes # (auto) 0.6 10 ^3/uL (0.4-5.4); Lymphocytes % (auto) 8.7 % (10.0-50.0); Mean Corpuscular Hemoglobin 22.2 pg (28.0-32.0); Mean Corpuscular Hgb Conc. 31.5 g/dL (32.0-36.0); Mean Corpuscular Volume 70.4 fL (80.0-100.0); Monocytes % (auto) 6.2 % (0.0-12.0); Neutrophils # (auto) 5.4 10 ^3/uL (1.6-8.6); Neutrophils % (auto) 83.8 % (37.0-80.0); Platelet Count (auto) 210 10^3/uL (140-450); Red Blood Cells 4.15 10^6/uL (4.5-5.90); White Blood Cell 6.5 10^3/uL (4.4-10.8)
[2019-12-15 05:42] LABS: Red Cell Distribution Width 23.5 % (11.8-14.3)
[2019-12-15 05:54] LABS: Albumin 2.8 g/dL (3.4-5.0); Calcium 8.4 mg/dL (8.5-10.1); Magnesium 2.2 mg/dL (1.6-2.6)
[2019-12-15 06:00] LABS: BUN/Creatinine Ratio 25.9; Bilirubin, Total 0.4 mg/dL (0.2-1.0); Phosphorus 3.1 mg/dL (2.5-4.90); Pre Albumin 16.9 mg/dL (20.0-40.0); Total Protein 6.6 g/dL (6.4-8.2)
[2019-12-15 06:56] LABS: INR 1.06 (0.9-1.15); Partial Thromboplastin Time 28.6 sec (23.64-32.05)
[2019-12-15 08:34] VITALS: BP 142/78
[2019-12-15] MEDS: INSULIN LANTUS (GLARGINE) 1 /0.01ml (100units/ml) SC SCH (10:00)
[2019-12-15] MEDS: SODIUM CHLOR 0.9% PF (SALINE LOCK) 10ML VIAL/SYR IV SCH ×2 (10:00→21:45)
[2019-12-15] MEDS ORDERED: levoFLOXacin 500MG 100 ML IV ONE (10:17)
[2019-12-15] MEDS ORDERED: POTASSIUM CHL 20MEQ/100ML 100 ML IV ONE (10:36)
[2019-12-15] MEDS: POTASSIUM CHL 20MEQ/100ML 100 ML IV SCH ×2 (12:30→14:39)
[2019-12-15 12:34] VITALS: BP 142/73
[2019-12-15] MEDS ORDERED: AMIODARONE 450mg/250ml AE 250 ML IV SCH (12:57)
[2019-12-15] MEDS: METOPROLOL TARTRATE 25 MG TAB PO SCH (13:00)
[2019-12-15] MEDS ORDERED: DIGOXIN (250MCG/ML) 2 ML AMPULE IV ONE (13:00)
[2019-12-15] MEDS: PANTOPRAZOLE 40 MG TAB PO SCH (13:00)
[2019-12-15] MEDS ORDERED: AMIODARONE HCL 150 MG in D5W 5% 100 ML IV ONE (13:00)
[2019-12-15 17:00] VITALS: BP 129/71
[2019-12-15] MEDS ORDERED: SPIRONOLACTONE 25 MG TAB PO ONE (17:00)
[2019-12-15] MEDS: AMIODARONE 450mg/250ml AE 250 ML IV SCH (18:57)
[2019-12-15] MEDS ORDERED: TPN PER PHARMACY IV NR ×12 (20:00)
[2019-12-15] MEDS: PANTOPRAZOLE 40 MG/10 ML VIAL INJ IV SCH (21:45)
[2019-12-16] VITALS (9 sets, daily range): BP systolic 95–188; BP diastolic 44–82
[2019-12-16] MEDS: InsuLIN REG 1unit/0.01ml Soln (100units/ml) SC SCH ×5 (01:28→23:54)
[2019-12-16] MEDS: ACCU-CHEK COMFORT CURVE STRIP VI SCH ×5 (01:28→23:54)
[2019-12-16 06:04] LABS: Albumin 2.5 g/dL (3.4-5.0); Calcium 8.1 mg/dL (8.5-10.1); Potassium 3.3 mmol/L (3.5-5.1)
[2019-12-16 06:08] LABS: Bilirubin, Total 0.4 mg/dL (0.2-1.0); Phosphorus 2.8 mg/dL (2.5-4.90); Total Protein 6.1 g/dL (6.4-8.2)
[2019-12-16] MEDS: LORazepam 2MG/ML-1ML VIAL IV PRN (08:29)
[2019-12-16] MEDS: AMIODARONE 450mg/250ml AE 250 ML IV SCH (09:57)
[2019-12-16] MEDS: INSULIN LANTUS (GLARGINE) 1 /0.01ml (100units/ml) SC SCH (10:00)
[2019-12-16] MEDS: PANTOPRAZOLE 40 MG/10 ML VIAL INJ IV SCH ×2 (10:46→22:00)
[2019-12-16] MEDS: SODIUM CHLOR 0.9% PF (SALINE LOCK) 10ML VIAL/SYR IV SCH ×2 (10:46→22:00)
[2019-12-16] MEDS ORDERED: POTASSIUM CHL 20MEQ/100ML 100 ML IV ONE (12:00)
[2019-12-16] MEDS ORDERED: ONDANSETRON HCL 4 MG/2 ML VIAL ONE (12:26)
[2019-12-16] MEDS ORDERED: ROCURONIUM 10MG/ML 10ML VIAL IV ONE (12:26)
[2019-12-16] MEDS ORDERED: MORPHINE SULFATE INJECTION 1 ML ONE (12:26)
[2019-12-16] MEDS ORDERED: SODIUM CHLORIDE LOCK 10 ML ONE (12:26)
[2019-12-16] MEDS ORDERED: fentaNYL CITRATE 100 MCG/2 ML VL ONE (12:26)
[2019-12-16] MEDS ORDERED: ETOMIDATE (2MG/ML) 20ML VIAL IV ONE (12:26)
[2019-12-16] MEDS ORDERED: MIDAZOLAM HCL 1MG/1ML-2 ML VIAL ONE ×2 (12:26→14:57)
[2019-12-16] MEDS ORDERED: levoFLOXacin 500MG 100 ML IV ONE (13:04)
[2019-12-16 13:35] LABS: Basophils # (auto) 0.1 10 ^3/uL (0-0.2); Basophils % (auto) 1.2 % (0.0-2.0); Eosinophils # (auto) 0.2 10 ^3/uL (0-0.8); Monocytes # (auto) 0.6 10 ^3/uL (0-1.3)
[2019-12-16 13:37] LABS: Eosinophils % (auto) 2.7 % (0.0-7.0); Hematocrit 27.8 % (41.0-53.0); Hemoglobin 8.7 g/dL (13.5-17.5); Lymphocytes % (auto) 13.5 % (10.0-50.0); Mean Corpuscular Hemoglobin 22.1 pg (28.0-32.0); Mean Corpuscular Hgb Conc. 31.2 g/dL (32.0-36.0); Mean Corpuscular Volume 70.7 fL (80.0-100.0); Monocytes % (auto) 7.8 % (0.0-12.0); Neutrophils # (auto) 5.7 10 ^3/uL (1.6-8.6); Neutrophils % (auto) 74.8 % (37.0-80.0); Platelet Count (auto) 219 10^3/uL (140-450); Red Blood Cells 3.92 10^6/uL (4.5-5.90); Red Cell Distribution Width 23.8 % (11.8-14.3); White Blood Cell 7.7 10^3/uL (4.4-10.8)
[2019-12-16] MEDS ORDERED: POVIDONE IODINE 10 % TOPICAL OINT 30GM TOP ONE (14:35)
[2019-12-16] MEDS ORDERED: HYDROmorphone HCL 2 MG/ML VL ONE (14:57)
[2019-12-16] MEDS ORDERED: MORPHINE SULFATE 4 MG/ML SYR/VIAL IV PRN (16:00)
[2019-12-16] MEDS ORDERED: ONDANSETRON HCL 4 MG/2 ML VIAL IV PRN (16:00)
[2019-12-16] MEDS ORDERED: HYDROmorphone HCL 2 MG/ML VL IV PRN (16:00)
[2019-12-16] MEDS ORDERED: fentaNYL CITRATE 100 MCG/2 ML VL IV PRN (16:00)
[2019-12-16] MEDS ORDERED: MIDAZOLAM DRIP 50 mg/50mL 50 ML IV SCH (16:33)
[2019-12-16] MEDS ORDERED: MIDAZOLAM DRIP 50 mg/50mL 50 ML IV ONE (16:40)
[2019-12-16] MEDS ORDERED: NOREPINEPHRINE 8 MG/250ML KIT 250 ML IV ONE (17:04)
[2019-12-16] MEDS: MIDAZOLAM DRIP 50 mg/50mL 50 ML IV SCH (18:05)
[2019-12-16] MEDS: NOREPINEPHRINE 8 MG/250ML KIT 250 ML IV SCH (18:15)
[2019-12-16] MEDS ORDERED: TPN PER PHARMACY IV NR ×12 (20:00)
[2019-12-16] MEDS: D5W/SOD CHL 0.45%/KCL 20MEQ 1,000 ML IV SCH (21:37)
[2019-12-16] MEDS: HYDROmorphone HCL 2 MG/ML VL IV PRN (22:29)
[2019-12-17] VITALS (10 sets, daily range): BP systolic 113–142; BP diastolic 44–58
[2019-12-17] MEDS: AMIODARONE 450mg/250ml AE 250 ML IV SCH (00:57)
[2019-12-17] MEDS: D5W/SOD CHL 0.45%/KCL 20MEQ 1,000 ML IV SCH ×2 (05:43→09:25)
[2019-12-17] MEDS: ACCU-CHEK COMFORT CURVE STRIP VI SCH ×3 (06:30→18:23)
[2019-12-17] MEDS: InsuLIN REG 1unit/0.01ml Soln (100units/ml) SC SCH ×3 (06:30→18:00)
[2019-12-17 06:44] LABS: Basophils # (auto) 0 10 ^3/uL (0-0.2); Basophils % (auto) 0.1 % (0.0-2.0); Eosinophils # (auto) 0 10 ^3/uL (0-0.8); Hemoglobin 8.1 g/dL (13.5-17.5); Monocytes # (auto) 0.7 10 ^3/uL (0-1.3); Neutrophils # (auto) 9.8 10 ^3/uL (1.6-8.6)
[2019-12-17 06:46] LABS: Hematocrit 25.9 % (41.0-53.0); Lymphocytes # (auto) 0.5 10 ^3/uL (0.4-5.4); Lymphocytes % (auto) 4.3 % (10.0-50.0); Mean Corpuscular Hemoglobin 22.4 pg (28.0-32.0); Mean Corpuscular Hgb Conc. 31.1 g/dL (32.0-36.0); Neutrophils % (auto) 89.6 % (37.0-80.0); Platelet Count (auto) 235 10^3/uL (140-450)
[2019-12-17 07:02] LABS: Calcium 8.1 mg/dL (8.5-10.1); Magnesium 2.2 mg/dL (1.6-2.6); Potassium 5.3 mmol/L (3.5-5.1)
[2019-12-17 07:04] LABS: BUN/Creatinine Ratio 34.4
[2019-12-17 07:07] LABS: Bilirubin, Total 0.4 mg/dL (0.2-1.0); Phosphorus 2.8 mg/dL (2.5-4.90); Total Protein 5.7 g/dL (6.4-8.2)
[2019-12-17 07:08] LABS: Red Cell Distribution Width 23.3 % (11.8-14.3)
[2019-12-17] MEDS: SODIUM CHLOR 0.9% PF (SALINE LOCK) 10ML VIAL/SYR IV SCH ×2 (10:00→22:34)
[2019-12-17] MEDS: INSULIN LANTUS (GLARGINE) 1 /0.01ml (100units/ml) SC SCH (10:00)
[2019-12-17] MEDS: PANTOPRAZOLE 40 MG/10 ML VIAL INJ IV SCH ×2 (10:00→22:00)
[2019-12-17] MEDS: SODIUM CHLORIDE 0.9% 1,000 ML IV SCH (12:28)
[2019-12-17] MEDS ORDERED: fentaNYL CITRATE 100 MCG/2 ML VL ONE (16:12)
[2019-12-17] MEDS ORDERED: fentaNYL CITRATE 100 MCG/2 ML VL IV ONE (16:30)
[2019-12-17] MEDS ORDERED: TPN PER PHARMACY IV NR ×22 (20:00)
[2019-12-17] MEDS: MORPHINE SULF INJ 2 MG/ML SYRINGE 1ML IV PRN (23:56)
[2019-12-18] VITALS (7 sets, daily range): BP systolic 115–134; BP diastolic 53–79
[2019-12-18] MEDS: SODIUM CHLORIDE 0.9% 1,000 ML IV SCH (02:40)
[2019-12-18] MEDS: ALBUTEROL SULF 2.5 MG/0.5ML(0.5%) NEB SOLN NEB PRN (03:03)
[2019-12-18] MEDS: HYDROmorphone HCL 2 MG/ML VL IV PRN (03:34)
[2019-12-18] MEDS: ACCU-CHEK COMFORT CURVE STRIP VI SCH ×4 (05:59→17:45)
[2019-12-18] MEDS: InsuLIN REG 1unit/0.01ml Soln (100units/ml) SC SCH ×4 (05:59→19:26)
[2019-12-18 06:20] LABS: Basophils # (auto) 0 10 ^3/uL (0-0.2); Hemoglobin 7.9 g/dL (13.5-17.5); Monocytes # (auto) 0.6 10 ^3/uL (0-1.3); White Blood Cell 10.4 10^3/uL (4.4-10.8)
[2019-12-18 06:24] LABS: Basophils % (auto) 0.1 % (0.0-2.0); Eosinophils # (auto) 0 10 ^3/uL (0-0.8); Eosinophils % (auto) 0.4 % (0.0-7.0); Hematocrit 24.7 % (41.0-53.0); Lymphocytes # (auto) 0.8 10 ^3/uL (0.4-5.4); Lymphocytes % (auto) 8.1 % (10.0-50.0); Mean Corpuscular Hemoglobin 22.6 pg (28.0-32.0); Mean Corpuscular Hgb Conc. 31.9 g/dL (32.0-36.0); Mean Corpuscular Volume 70.8 fL (80.0-100.0); Neutrophils # (auto) 8.9 10 ^3/uL (1.6-8.6); Neutrophils % (auto) 85.4 % (37.0-80.0); Platelet Count (auto) 230 10^3/uL (140-450); Red Blood Cells 3.49 10^6/uL (4.5-5.90)
[2019-12-18 06:42] LABS: Potassium 4.5 mmol/L (3.5-5.1)
[2019-12-18 06:54] LABS: Albumin 2.1 g/dL (3.4-5.0); BUN/Creatinine Ratio 35.7; Bilirubin, Total 0.3 mg/dL (0.2-1.0); Calcium 8.2 mg/dL (8.5-10.1); Magnesium 1.9 mg/dL (1.6-2.6); Phosphorus 3.9 mg/dL (2.5-4.90); Total Protein 5.8 g/dL (6.4-8.2)
[2019-12-18] MEDS: MIDAZOLAM DRIP 50 mg/50mL 50 ML IV SCH (07:36)
[2019-12-18] MEDS: NOREPINEPHRINE 8 MG/250ML KIT 250 ML IV SCH (07:37)
[2019-12-18] MEDS ORDERED: ACETAMINOPHEN IV 1000 MG/100ML (10MG/ML) IV PRN (09:45)
[2019-12-18] MEDS: ONDANSETRON HCL 4 MG/2 ML VIAL IV PRN ×2 (11:11→17:21)
[2019-12-18] MEDS: PANTOPRAZOLE 40 MG/10 ML VIAL INJ IV SCH ×2 (11:11→21:32)
[2019-12-18] MEDS: SODIUM CHLOR 0.9% PF (SALINE LOCK) 10ML VIAL/SYR IV SCH ×2 (11:11→21:33)
[2019-12-18] MEDS: INSULIN LANTUS (GLARGINE) 1 /0.01ml (100units/ml) SC SCH (11:12)
[2019-12-18] MEDS: MORPHINE SULF INJ 2 MG/ML SYRINGE 1ML IV PRN ×2 (17:21→21:33)
[2019-12-18] MEDS ORDERED: levoFLOXacin 500MG 100 ML IV ONE (17:32)
[2019-12-18 18:35] LABS: BUN/Creatinine Ratio 40.8; Calcium 8.1 mg/dL (8.5-10.1); Potassium 3.8 mmol/L (3.5-5.1)
[2019-12-18] MEDS ORDERED: TPN PER PHARMACY IV NR ×10 (20:00)
[2019-12-19] MEDS: HYDROmorphone HCL 2 MG/ML VL IV PRN (01:07)
[2019-12-19 05:00] VITALS: BP 131/59
[2019-12-19] MEDS: ACCU-CHEK COMFORT CURVE STRIP VI SCH ×5 (05:33→23:35)
[2019-12-19] MEDS: InsuLIN REG 1unit/0.01ml Soln (100units/ml) SC SCH ×5 (05:34→23:42)
[2019-12-19 05:46] LABS: Basophils # (auto) 0 10 ^3/uL (0-0.2); Basophils % (auto) 0.2 % (0.0-2.0); Eosinophils # (auto) 0.1 10 ^3/uL (0-0.8); Eosinophils % (auto) 1.4 % (0.0-7.0); Hemoglobin 8.1 g/dL (13.5-17.5); Mean Corpuscular Volume 70.8 fL (80.0-100.0)
[2019-12-19 05:47] LABS: Hematocrit 25.7 % (41.0-53.0); Lymphocytes # (auto) 0.6 10 ^3/uL (0.4-5.4); Mean Corpuscular Hemoglobin 22.4 pg (28.0-32.0); Mean Corpuscular Hgb Conc. 31.6 g/dL (32.0-36.0); Monocytes # (auto) 0.6 10 ^3/uL (0-1.3); Monocytes % (auto) 6.5 % (0.0-12.0); Neutrophils # (auto) 7.8 10 ^3/uL (1.6-8.6); Neutrophils % (auto) 84.9 % (37.0-80.0); Platelet Count (auto) 242 10^3/uL (140-450); Red Blood Cells 3.63 10^6/uL (4.5-5.90); White Blood Cell 9.1 10^3/uL (4.4-10.8)
[2019-12-19 06:00] LABS: Albumin 1.9 g/dL (3.4-5.0); Calcium 8.1 mg/dL (8.5-10.1); Potassium 3.9 mmol/L (3.5-5.1)
[2019-12-19 06:07] LABS: BUN/Creatinine Ratio 44.7; Bilirubin, Total 0.4 mg/dL (0.2-1.0); Magnesium 2.1 mg/dL (1.6-2.6); Phosphorus 3.3 mg/dL (2.5-4.90); Total Protein 5.9 g/dL (6.4-8.2)
[2019-12-19 06:25] LABS: Red Cell Distribution Width 24.1 % (11.8-14.3)
[2019-12-19 09:00] VITALS: BP 141/88
[2019-12-19] MEDS: ENOXAPARIN SOD 30 MG/0.3 ML SYRINGE SC SCH (09:38)
[2019-12-19] MEDS: levoFLOXacin 500MG 100 ML IV SCH (09:38)
[2019-12-19] MEDS: INSULIN LANTUS (GLARGINE) 1 /0.01ml (100units/ml) SC SCH (09:38)
[2019-12-19] MEDS: ONDANSETRON HCL 4 MG/2 ML VIAL IV PRN (09:38)
[2019-12-19] MEDS: PANTOPRAZOLE 40 MG/10 ML VIAL INJ IV SCH ×2 (09:38→21:48)
[2019-12-19] MEDS: SODIUM CHLOR 0.9% PF (SALINE LOCK) 10ML VIAL/SYR IV SCH ×2 (09:38→21:50)
[2019-12-19 12:00] VITALS: BP 107/63
[2019-12-19 12:21] VITALS: BP 137/74
[2019-12-19] MEDS: METOPROLOL TARTRATE 1MG/1ML-5ML VIAL IV PRN (12:24)
[2019-12-19 16:47] VITALS: BP 112/53
[2019-12-19] MEDS: ALBUTEROL SULF 2.5 MG/0.5ML(0.5%) NEB SOLN NEB PRN (19:25)
[2019-12-19] MEDS ORDERED: TPN PER PHARMACY IV NR ×11 (20:00)
[2019-12-19] MEDS: METOPROLOL TARTRATE 25 MG TAB PO SCH (21:48)
[2019-12-19 22:00] VITALS: BP 125/66
[2019-12-20] MEDS: ALBUTEROL SULF 2.5 MG/0.5ML(0.5%) NEB SOLN NEB PRN (00:41)
[2019-12-20 02:18] VITALS: BP 125/66
[2019-12-20 05:16] VITALS: BP 130/65
[2019-12-20] MEDS: ACCU-CHEK COMFORT CURVE STRIP VI SCH ×4 (05:42→23:38)
[2019-12-20] MEDS: InsuLIN REG 1unit/0.01ml Soln (100units/ml) SC SCH ×4 (06:18→23:38)
[2019-12-20 07:34] LABS: Basophils # (auto) 0 10 ^3/uL (0-0.2); Basophils % (auto) 0.3 % (0.0-2.0); Eosinophils # (auto) 0.1 10 ^3/uL (0-0.8); Hemoglobin 7.7 g/dL (13.5-17.5); Lymphocytes # (auto) 0.6 10 ^3/uL (0.4-5.4); Lymphocytes % (auto) 7.3 % (10.0-50.0); Mean Corpuscular Hemoglobin 21.8 pg (28.0-32.0); Mean Corpuscular Hgb Conc. 30.9 g/dL (32.0-36.0); Mean Corpuscular Volume 70.6 fL (80.0-100.0); Monocytes # (auto) 0.5 10 ^3/uL (0-1.3); Monocytes % (auto) 5.6 % (0.0-12.0); Neutrophils % (auto) 85.8 % (37.0-80.0); Platelet Count (auto) 268 10^3/uL (140-450); Red Blood Cells 3.55 10^6/uL (4.5-5.90); White Blood Cell 8.2 10^3/uL (4.4-10.8)
[2019-12-20 07:52] LABS: Albumin 1.8 g/dL (3.4-5.0); Calcium 8.4 mg/dL (8.5-10.1); Magnesium 2.2 mg/dL (1.6-2.6); Potassium 3.7 mmol/L (3.5-5.1)
[2019-12-20 07:56] LABS: BUN/Creatinine Ratio 45.8; Bilirubin, Total 0.4 mg/dL (0.2-1.0); Phosphorus 2.7 mg/dL (2.5-4.90); Total Protein 6.1 g/dL (6.4-8.2)
[2019-12-20] MEDS: SODIUM CHLOR 0.9% PF (SALINE LOCK) 10ML VIAL/SYR IV SCH ×2 (10:27→21:23)
[2019-12-20] MEDS: ENOXAPARIN SOD 30 MG/0.3 ML SYRINGE SC SCH (10:27)
[2019-12-20] MEDS: levoFLOXacin 500MG 100 ML IV SCH (10:28)
[2019-12-20] MEDS: PANTOPRAZOLE 40 MG/10 ML VIAL INJ IV SCH ×2 (10:31→21:23)
[2019-12-20] MEDS: INSULIN LANTUS (GLARGINE) 1 /0.01ml (100units/ml) SC SCH (10:33)
[2019-12-20] MEDS: METOPROLOL TARTRATE 25 MG TAB PO SCH ×2 (12:11→21:24)
[2019-12-20 12:21] VITALS: BP 139/60
[2019-12-20 17:07] VITALS: BP 144/78
[2019-12-20] MEDS ORDERED: TPN PER PHARMACY IV NR ×10 (20:00)
[2019-12-20 22:00] VITALS: BP 152/73
[2019-12-21 05:30] VITALS: BP 141/80
[2019-12-21] MEDS: InsuLIN REG 1unit/0.01ml Soln (100units/ml) SC SCH ×4 (05:37→23:32)
[2019-12-21] MEDS: ACCU-CHEK COMFORT CURVE STRIP VI SCH ×4 (05:38→23:32)
[2019-12-21 06:43] LABS: Basophils # (auto) 0 10 ^3/uL (0-0.2); Eosinophils # (auto) 0.1 10 ^3/uL (0-0.8); Hematocrit 24.5 % (41.0-53.0); Hemoglobin 7.6 g/dL (13.5-17.5); Lymphocytes # (auto) 0.6 10 ^3/uL (0.4-5.4); Mean Corpuscular Hemoglobin 22.2 pg (28.0-32.0); Neutrophils # (auto) 5.6 10 ^3/uL (1.6-8.6)
[2019-12-21 06:45] LABS: Basophils % (auto) 0.7 % (0.0-2.0); Eosinophils % (auto) 1.3 % (0.0-7.0); Lymphocytes % (auto) 8.9 % (10.0-50.0); Mean Corpuscular Hgb Conc. 31.1 g/dL (32.0-36.0); Mean Corpuscular Volume 71.4 fL (80.0-100.0); Monocytes # (auto) 0.5 10 ^3/uL (0-1.3); Monocytes % (auto) 6.8 % (0.0-12.0); Neutrophils % (auto) 82.3 % (37.0-80.0); Platelet Count (auto) 276 10^3/uL (140-450); Red Blood Cells 3.43 10^6/uL (4.5-5.90); White Blood Cell 6.9 10^3/uL (4.4-10.8)
[2019-12-21 06:50] LABS: Red Cell Distribution Width 23.6 % (11.8-14.3)
[2019-12-21 07:01] LABS: Potassium 3.6 mmol/L (3.5-5.1)
[2019-12-21 07:16] LABS: Albumin 1.8 g/dL (3.4-5.0); BUN/Creatinine Ratio 46.5; Bilirubin, Total 0.4 mg/dL (0.2-1.0); Calcium 8.5 mg/dL (8.5-10.1); Magnesium 2.3 mg/dL (1.6-2.6); Phosphorus 2.8 mg/dL (2.5-4.90); Total Protein 6.2 g/dL (6.4-8.2)
[2019-12-21 07:30] VITALS: BP 152/85
[2019-12-21] MEDS: levoFLOXacin 500MG 100 ML IV SCH (09:18)
[2019-12-21] MEDS: ENOXAPARIN SOD 30 MG/0.3 ML SYRINGE SC SCH (09:18)
[2019-12-21] MEDS: SODIUM CHLOR 0.9% PF (SALINE LOCK) 10ML VIAL/SYR IV SCH ×2 (09:18→21:55)
[2019-12-21] MEDS: PANTOPRAZOLE 40 MG/10 ML VIAL INJ IV SCH ×2 (09:18→21:55)
[2019-12-21] MEDS: METOPROLOL TARTRATE 25 MG TAB PO SCH ×2 (09:19→21:55)
[2019-12-21] MEDS: INSULIN LANTUS (GLARGINE) 1 /0.01ml (100units/ml) SC SCH (09:31)
[2019-12-21 12:30] VITALS: BP 132/83
[2019-12-21 17:12] VITALS: BP 159/69
[2019-12-21] MEDS ORDERED: TPN PER PHARMACY IV NR ×10 (20:00)
[2019-12-21 22:00] VITALS: BP 150/79
[2019-12-22 05:23] VITALS: BP 136/85
[2019-12-22] MEDS: ACCU-CHEK COMFORT CURVE STRIP VI SCH ×3 (05:31→17:58)
[2019-12-22] MEDS: InsuLIN REG 1unit/0.01ml Soln (100units/ml) SC SCH ×3 (05:31→17:57)
[2019-12-22 05:36] LABS: Basophils # (auto) 0.1 10 ^3/uL (0-0.2); Eosinophils # (auto) 0.1 10 ^3/uL (0-0.8); Hemoglobin 7.5 g/dL (13.5-17.5); Lymphocytes # (auto) 0.6 10 ^3/uL (0.4-5.4); Mean Corpuscular Hemoglobin 22.1 pg (28.0-32.0); Monocytes # (auto) 0.5 10 ^3/uL (0-1.3); Neutrophils # (auto) 5.4 10 ^3/uL (1.6-8.6); Neutrophils % (auto) 81.3 % (37.0-80.0); Nucleated Red Blood Cells % 0.1 %
[2019-12-22 05:38] LABS: Eosinophils % (auto) 1.3 % (0.0-7.0); Hematocrit 23.9 % (41.0-53.0); Lymphocytes % (auto) 8.8 % (10.0-50.0); Mean Corpuscular Hgb Conc. 31.3 g/dL (32.0-36.0); Mean Corpuscular Volume 70.5 fL (80.0-100.0); Monocytes % (auto) 7.6 % (0.0-12.0); Platelet Count (auto) 295 10^3/uL (140-450); Red Blood Cells 3.39 10^6/uL (4.5-5.90); White Blood Cell 6.7 10^3/uL (4.4-10.8)
[2019-12-22 05:58] LABS: Potassium 3.9 mmol/L (3.5-5.1)
[2019-12-22 06:06] LABS: Red Cell Distribution Width 23.9 % (11.8-14.3)
[2019-12-22 06:11] LABS: Albumin 1.9 g/dL (3.4-5.0); BUN/Creatinine Ratio 47.8; Bilirubin, Total 0.5 mg/dL (0.2-1.0); Calcium 8.5 mg/dL (8.5-10.1); Magnesium 2.3 mg/dL (1.6-2.6); Phosphorus 3.3 mg/dL (2.5-4.90); Pre Albumin 9.3 mg/dL (20.0-40.0); Total Protein 6.2 g/dL (6.4-8.2)
[2019-12-22 09:00] VITALS: BP 148/74
[2019-12-22] MEDS: levoFLOXacin 500MG 100 ML IV SCH (10:12)
[2019-12-22] MEDS: PANTOPRAZOLE 40 MG/10 ML VIAL INJ IV SCH ×2 (10:12→22:02)
[2019-12-22] MEDS: SODIUM CHLOR 0.9% PF (SALINE LOCK) 10ML VIAL/SYR IV SCH ×2 (10:12→22:03)
[2019-12-22] MEDS: ENOXAPARIN SOD 30 MG/0.3 ML SYRINGE SC SCH (10:12)
[2019-12-22] MEDS: METOPROLOL TARTRATE 25 MG TAB PO SCH ×2 (10:13→22:03)
[2019-12-22] MEDS: INSULIN LANTUS (GLARGINE) 1 /0.01ml (100units/ml) SC SCH (10:14)
[2019-12-22] MEDS ORDERED: GASTROGRAFIN 120 ML SOL ONE (12:12)
[2019-12-22 13:00] VITALS: BP 117/62
[2019-12-22 17:00] VITALS: BP 147/75
[2019-12-22] MEDS ORDERED: TPN PER PHARMACY IV NR ×10 (20:00)
[2019-12-22 22:00] VITALS: BP 139/66
[2019-12-22] MEDS: TIMOLOL MAL 0.5% OPTH(EYE) SOL 5ML RIGHTEYE SCH (22:00)
[2019-12-22] MEDS: LATANOPROST 0.005 % OPTH(EYE) SOL 2.5ML RIGHTEYE SCH (22:00)
[2019-12-22] MEDS: BRIMONIDINE 0.2% OPTH Soln 5ml RIGHTEYE SCH (22:00)
[2019-12-23] MEDS: ACCU-CHEK COMFORT CURVE STRIP VI SCH ×5 (00:06→23:41)
[2019-12-23] MEDS: InsuLIN REG 1unit/0.01ml Soln (100units/ml) SC SCH ×5 (00:07→23:40)
[2019-12-23 05:41] VITALS: BP 158/73
[2019-12-23 07:28] LABS: Albumin 1.9 g/dL (3.4-5.0); Calcium 8.6 mg/dL (8.5-10.1); Magnesium 2.2 mg/dL (1.6-2.6); Potassium 3.5 mmol/L (3.5-5.1)
[2019-12-23 07:32] LABS: Bilirubin, Total 0.4 mg/dL (0.2-1.0); Phosphorus 3.3 mg/dL (2.5-4.90); Total Protein 6.2 g/dL (6.4-8.2)
[2019-12-23 08:00] VITALS: BP 141/86
[2019-12-23 09:00] VITALS: BP 141/86
[2019-12-23] MEDS: METOPROLOL TARTRATE 25 MG TAB PO SCH ×2 (10:00→22:00)
[2019-12-23] MEDS: ENOXAPARIN SOD 30 MG/0.3 ML SYRINGE SC SCH (10:00)
[2019-12-23] MEDS: BRIMONIDINE 0.2% OPTH Soln 5ml RIGHTEYE SCH ×2 (10:00→21:51)
[2019-12-23] MEDS: TIMOLOL MAL 0.5% OPTH(EYE) SOL 5ML RIGHTEYE SCH ×2 (10:00→21:52)
[2019-12-23] MEDS: SODIUM CHLOR 0.9% PF (SALINE LOCK) 10ML VIAL/SYR IV SCH ×2 (10:00→21:51)
[2019-12-23] MEDS: levoFLOXacin 500MG 100 ML IV SCH (10:14)
[2019-12-23] MEDS: PANTOPRAZOLE 40 MG/10 ML VIAL INJ IV SCH ×2 (10:14→21:51)
[2019-12-23] MEDS: INSULIN LANTUS (GLARGINE) 1 /0.01ml (100units/ml) SC SCH (10:17)
[2019-12-23 13:00] VITALS: BP 133/75
[2019-12-23 16:53] VITALS: BP 131/68
[2019-12-23] MEDS ORDERED: TPN PER PHARMACY IV NR ×9 (20:00)
[2019-12-23] MEDS: LATANOPROST 0.005 % OPTH(EYE) SOL 2.5ML RIGHTEYE SCH ×2 (21:52→22:15)
[2019-12-23 22:00] VITALS: BP 142/64
[2019-12-24 06:00] VITALS: BP 145/72
[2019-12-24] MEDS: ACCU-CHEK COMFORT CURVE STRIP VI SCH ×3 (06:29→17:44)
[2019-12-24] MEDS: InsuLIN REG 1unit/0.01ml Soln (100units/ml) SC SCH ×3 (06:30→17:43)
[2019-12-24 07:05] LABS: Hemoglobin 7.1 g/dL (13.5-17.5); White Blood Cell 6.3 10^3/uL (4.4-10.8)
[2019-12-24 07:06] LABS: Mean Corpuscular Hemoglobin 21.7 pg (28.0-32.0); Mean Corpuscular Volume 69.8 fL (80.0-100.0); Platelet Count (auto) 287 10^3/uL (140-450)
[2019-12-24 07:13] LABS: Red Cell Distribution Width 23.7 % (11.8-14.3)
[2019-12-24 07:20] LABS: Potassium 3.5 mmol/L (3.5-5.1)
[2019-12-24 07:34] LABS: Albumin 1.9 g/dL (3.4-5.0); BUN/Creatinine Ratio 50.9; Bilirubin, Total 0.3 mg/dL (0.2-1.0); Calcium 8.4 mg/dL (8.5-10.1); Magnesium 2.3 mg/dL (1.6-2.6); Phosphorus 3.4 mg/dL (2.5-4.90); Total Protein 6.1 g/dL (6.4-8.2)
[2019-12-24 10:00] VITALS: BP 137/70
[2019-12-24] MEDS: BRIMONIDINE 0.2% OPTH Soln 5ml RIGHTEYE SCH ×2 (10:00→21:50)
[2019-12-24] MEDS: METOPROLOL TARTRATE 25 MG TAB PO SCH ×2 (10:00→21:50)
[2019-12-24] MEDS: INSULIN LANTUS (GLARGINE) 1 /0.01ml (100units/ml) SC SCH (10:13)
[2019-12-24] MEDS: TIMOLOL MAL 0.5% OPTH(EYE) SOL 5ML RIGHTEYE SCH ×2 (10:14→21:50)
[2019-12-24] MEDS: PANTOPRAZOLE 40 MG/10 ML VIAL INJ IV SCH ×2 (10:15→21:49)
[2019-12-24] MEDS: METOPROLOL TARTRATE 1MG/1ML-5ML VIAL IV PRN (10:15)
[2019-12-24] MEDS: levoFLOXacin 500MG 100 ML IV SCH (10:17)
[2019-12-24] MEDS: SODIUM CHLOR 0.9% PF (SALINE LOCK) 10ML VIAL/SYR IV SCH ×2 (10:17→21:50)
[2019-12-24] MEDS: ENOXAPARIN SOD 30 MG/0.3 ML SYRINGE SC SCH (10:18)
[2019-12-24 13:00] VITALS: BP 135/72
[2019-12-24 15:41] LABS: Basophils # (auto) 0 10 ^3/uL (0-0.2); Eosinophils # (auto) 0.1 10 ^3/uL (0-0.8); Lymphocytes # (auto) 0.6 10 ^3/uL (0.4-5.4); Nucleated Red Blood Cells % 0.1 %
[2019-12-24 15:43] LABS: Basophils % (auto) 0.3 % (0.0-2.0); Eosinophils % (auto) 0.9 % (0.0-7.0); Hematocrit 25.8 % (41.0-53.0); Hemoglobin 7.9 g/dL (13.5-17.5); Lymphocytes % (auto) 9.3 % (10.0-50.0); Mean Corpuscular Hemoglobin 21.8 pg (28.0-32.0); Mean Corpuscular Hgb Conc. 30.6 g/dL (32.0-36.0); Monocytes # (auto) 0.4 10 ^3/uL (0-1.3); Monocytes % (auto) 7.1 % (0.0-12.0); Neutrophils # (auto) 5.1 10 ^3/uL (1.6-8.6); Neutrophils % (auto) 82.4 % (37.0-80.0); Platelet Count (auto) 275 10^3/uL (140-450); Red Blood Cells 3.63 10^6/uL (4.5-5.90); White Blood Cell 6.2 10^3/uL (4.4-10.8)
[2019-12-24 16:53] VITALS: BP 120/59
[2019-12-24] MEDS ORDERED: TPN PER PHARMACY IV NR ×10 (20:00)
[2019-12-24 21:46] VITALS: BP 135/64
[2019-12-24] MEDS: LATANOPROST 0.005 % OPTH(EYE) SOL 2.5ML RIGHTEYE SCH (21:50)
[2019-12-25] VITALS (11 sets, daily range): BP systolic 115–150; BP diastolic 61–80
[2019-12-25] MEDS: ACCU-CHEK COMFORT CURVE STRIP VI SCH ×4 (00:15→18:57)
[2019-12-25] MEDS: InsuLIN REG 1unit/0.01ml Soln (100units/ml) SC SCH ×4 (00:17→18:57)
[2019-12-25 06:36] LABS: Basophils # (auto) 0 10 ^3/uL (0-0.2); Eosinophils # (auto) 0.1 10 ^3/uL (0-0.8); Lymphocytes # (auto) 0.6 10 ^3/uL (0.4-5.4); Neutrophils # (auto) 4.5 10 ^3/uL (1.6-8.6); Nucleated Red Blood Cells % 0.1 %; Platelet Count (auto) 283 10^3/uL (140-450)
[2019-12-25 06:38] LABS: Basophils % (auto) 0.9 % (0.0-2.0); Eosinophils % (auto) 1.1 % (0.0-7.0); Hematocrit 26.4 % (41.0-53.0); Hemoglobin 8.3 g/dL (13.5-17.5); Lymphocytes % (auto) 10.8 % (10.0-50.0); Mean Corpuscular Hemoglobin 22.7 pg (28.0-32.0); Mean Corpuscular Hgb Conc. 31.6 g/dL (32.0-36.0); Monocytes # (auto) 0.4 10 ^3/uL (0-1.3); Monocytes % (auto) 7.7 % (0.0-12.0); Neutrophils % (auto) 79.5 % (37.0-80.0); Red Blood Cells 3.67 10^6/uL (4.5-5.90); White Blood Cell 5.6 10^3/uL (4.4-10.8)
[2019-12-25 06:48] LABS: Red Cell Distribution Width 25.1 % (11.8-14.3)
[2019-12-25 06:56] LABS: Potassium 3.6 mmol/L (3.5-5.1)
[2019-12-25 07:05] LABS: BUN/Creatinine Ratio 49.1; Bilirubin, Total 0.3 mg/dL (0.2-1.0); Calcium 8.4 mg/dL (8.5-10.1); Magnesium 2.1 mg/dL (1.6-2.6); Phosphorus 2.7 mg/dL (2.5-4.90); Pre Albumin 10.8 mg/dL (20.0-40.0); Total Protein 6.3 g/dL (6.4-8.2)
[2019-12-25] MEDS: PANTOPRAZOLE 40 MG/10 ML VIAL INJ IV SCH ×2 (09:28→21:17)
[2019-12-25] MEDS: levoFLOXacin 500MG 100 ML IV SCH (09:28)
[2019-12-25] MEDS: ENOXAPARIN SOD 30 MG/0.3 ML SYRINGE SC SCH (09:29)
[2019-12-25] MEDS: ONDANSETRON HCL 4 MG/2 ML VIAL IV PRN (09:29)
[2019-12-25] MEDS: BRIMONIDINE 0.2% OPTH Soln 5ml RIGHTEYE SCH ×2 (09:30→21:18)
[2019-12-25] MEDS: TIMOLOL MAL 0.5% OPTH(EYE) SOL 5ML RIGHTEYE SCH ×2 (09:30→21:18)
[2019-12-25] MEDS: METOPROLOL TARTRATE 25 MG TAB PO SCH ×2 (09:30→21:44)
[2019-12-25] MEDS: SODIUM CHLOR 0.9% PF (SALINE LOCK) 10ML VIAL/SYR IV SCH ×2 (09:30→21:17)
[2019-12-25] MEDS ORDERED: TPN PER PHARMACY IV NR ×10 (20:00)
[2019-12-25] MEDS: LATANOPROST 0.005 % OPTH(EYE) SOL 2.5ML RIGHTEYE SCH (21:18)
[2019-12-26] MEDS: ACCU-CHEK COMFORT CURVE STRIP VI SCH ×4 (00:24→18:56)
[2019-12-26] MEDS: InsuLIN REG 1unit/0.01ml Soln (100units/ml) SC SCH ×4 (00:24→19:00)
[2019-12-26 05:00] VITALS: BP 146/86
[2019-12-26 07:16] LABS: Eosinophils # (auto) 0.1 10 ^3/uL (0-0.8); Eosinophils % (auto) 1.9 % (0.0-7.0); Lymphocytes # (auto) 0.6 10 ^3/uL (0.4-5.4)
[2019-12-26 07:23] LABS: Basophils # (auto) 0 10 ^3/uL (0-0.2); Basophils % (auto) 0.6 % (0.0-2.0); Hematocrit 26.3 % (41.0-53.0); Hemoglobin 8.4 g/dL (13.5-17.5); Lymphocytes % (auto) 8.2 % (10.0-50.0); Mean Corpuscular Hgb Conc. 31.9 g/dL (32.0-36.0); Monocytes # (auto) 0.4 10 ^3/uL (0-1.3); Monocytes % (auto) 5.3 % (0.0-12.0); Neutrophils # (auto) 6.3 10 ^3/uL (1.6-8.6); Nucleated Red Blood Cells % 0.1 %; Platelet Count (auto) 289 10^3/uL (140-450); Red Blood Cells 3.64 10^6/uL (4.5-5.90); White Blood Cell 7.5 10^3/uL (4.4-10.8)
[2019-12-26 07:26] LABS: Red Cell Distribution Width 25.2 % (11.8-14.3)
[2019-12-26 07:36] LABS: Potassium 3.8 mmol/L (3.5-5.1)
[2019-12-26 07:44] LABS: Albumin 1.9 g/dL (3.4-5.0); BUN/Creatinine Ratio 55.1; Bilirubin, Total 0.3 mg/dL (0.2-1.0); Calcium 8.3 mg/dL (8.5-10.1); Magnesium 2.1 mg/dL (1.6-2.6); Phosphorus 2.9 mg/dL (2.5-4.90); Total Protein 6.3 g/dL (6.4-8.2)
[2019-12-26 08:00] VITALS: BP 144/71
[2019-12-26 09:02] VITALS: BP 144/71
[2019-12-26] MEDS: SODIUM CHLOR 0.9% PF (SALINE LOCK) 10ML VIAL/SYR IV SCH ×2 (10:00→22:02)
[2019-12-26] MEDS: INSULIN LANTUS (GLARGINE) 1 /0.01ml (100units/ml) SC SCH ×2 (10:50→19:16)
[2019-12-26] MEDS: PANTOPRAZOLE 40 MG/10 ML VIAL INJ IV SCH ×2 (11:36→22:01)
[2019-12-26] MEDS: ENOXAPARIN SOD 30 MG/0.3 ML SYRINGE SC SCH (11:36)
[2019-12-26] MEDS: BRIMONIDINE 0.2% OPTH Soln 5ml RIGHTEYE SCH ×2 (11:37→23:40)
[2019-12-26] MEDS: TIMOLOL MAL 0.5% OPTH(EYE) SOL 5ML RIGHTEYE SCH ×2 (11:37→23:41)
[2019-12-26] MEDS: METOPROLOL TARTRATE 25 MG TAB PO SCH ×2 (11:37→22:02)
[2019-12-26 15:01] VITALS: BP 139/66
[2019-12-26 17:21] VITALS: BP 147/84
[2019-12-26] MEDS ORDERED: TPN PER PHARMACY IV NR ×10 (20:00)
[2019-12-26 22:00] VITALS: BP 131/67
[2019-12-26] MEDS: LATANOPROST 0.005 % OPTH(EYE) SOL 2.5ML RIGHTEYE SCH (23:41)
[2019-12-27] MEDS: ACCU-CHEK COMFORT CURVE STRIP VI SCH ×4 (02:00→17:43)
[2019-12-27] MEDS: InsuLIN REG 1unit/0.01ml Soln (100units/ml) SC SCH ×4 (02:02→17:43)
[2019-12-27 05:00] VITALS: BP 149/74
[2019-12-27 06:12] LABS: Albumin 1.9 g/dL (3.4-5.0); Potassium 3.9 mmol/L (3.5-5.1)
[2019-12-27 06:19] LABS: BUN/Creatinine Ratio 52.9; Bilirubin, Total 0.2 mg/dL (0.2-1.0); Calcium 8.3 mg/dL (8.5-10.1); Magnesium 2.1 mg/dL (1.6-2.6); Phosphorus 3.2 mg/dL (2.5-4.90)
[2019-12-27] MEDS: ACETAMINOPHEN 500 MG TAB PO PRN ×2 (08:48→22:35)
[2019-12-27 09:00] VITALS: BP 138/72
[2019-12-27] MEDS: METOPROLOL TARTRATE 25 MG TAB PO SCH ×2 (10:00→22:47)
[2019-12-27] MEDS: TIMOLOL MAL 0.5% OPTH(EYE) SOL 5ML RIGHTEYE SCH (10:50)
[2019-12-27] MEDS: BRIMONIDINE 0.2% OPTH Soln 5ml RIGHTEYE SCH (10:50)
[2019-12-27] MEDS: INSULIN LANTUS (GLARGINE) 1 /0.01ml (100units/ml) SC SCH (10:50)
[2019-12-27] MEDS: PANTOPRAZOLE 40 MG/10 ML VIAL INJ IV SCH ×2 (10:50→22:34)
[2019-12-27] MEDS: ENOXAPARIN SOD 30 MG/0.3 ML SYRINGE SC SCH (10:50)
[2019-12-27] MEDS: SODIUM CHLOR 0.9% PF (SALINE LOCK) 10ML VIAL/SYR IV SCH (10:50)
[2019-12-27 17:00] VITALS: BP 133/76
[2019-12-27 20:00] VITALS: BP 118/65
[2019-12-27] MEDS ORDERED: TPN PER PHARMACY IV NR ×10 (20:00)
[2019-12-27 22:54] VITALS: BP 141/83
[2019-12-28] MEDS: ACCU-CHEK COMFORT CURVE STRIP VI SCH ×4 (00:08→17:54)
[2019-12-28] MEDS: InsuLIN REG 1unit/0.01ml Soln (100units/ml) SC SCH ×4 (00:08→17:55)
[2019-12-28] MEDS: TIMOLOL MAL 0.5% OPTH(EYE) SOL 5ML RIGHTEYE SCH ×3 (01:04→23:11)
[2019-12-28] MEDS: BRIMONIDINE 0.2% OPTH Soln 5ml RIGHTEYE SCH ×3 (01:04→23:11)
[2019-12-28] MEDS: SODIUM CHLOR 0.9% PF (SALINE LOCK) 10ML VIAL/SYR IV SCH ×3 (01:04→23:10)
[2019-12-28] MEDS: LATANOPROST 0.005 % OPTH(EYE) SOL 2.5ML RIGHTEYE SCH ×2 (01:05→23:11)
[2019-12-28 05:47] LABS: Calcium 8.3 mg/dL (8.5-10.1); Magnesium 2.3 mg/dL (1.6-2.6); Potassium 4.1 mmol/L (3.5-5.1)
[2019-12-28 05:52] LABS: Bilirubin, Total 0.4 mg/dL (0.2-1.0); Phosphorus 3.5 mg/dL (2.5-4.90); Total Protein 6.5 g/dL (6.4-8.2)
[2019-12-28 05:58] VITALS: BP 145/86
[2019-12-28 09:00] VITALS: BP 150/84
[2019-12-28] MEDS: METOPROLOL TARTRATE 25 MG TAB PO SCH ×2 (10:26→23:10)
[2019-12-28] MEDS: PANTOPRAZOLE 40 MG TAB PO SCH (10:27)
[2019-12-28] MEDS: ENOXAPARIN SOD 30 MG/0.3 ML SYRINGE SC SCH (10:28)
[2019-12-28] MEDS: INSULIN LANTUS (GLARGINE) 1 /0.01ml (100units/ml) SC SCH (10:28)
[2019-12-28] MEDS: ACETAMINOPHEN 500 MG TAB PO PRN ×2 (10:29→23:12)
[2019-12-28 13:00] VITALS: BP 156/86
[2019-12-28 17:07] VITALS: BP 148/80
[2019-12-28 21:15] VITALS: BP 130/76
[2019-12-29 05:00] VITALS: BP 133/92
[2019-12-29] MEDS: ACCU-CHEK COMFORT CURVE STRIP VI SCH ×4 (06:24→18:21)
[2019-12-29] MEDS: InsuLIN REG 1unit/0.01ml Soln (100units/ml) SC SCH ×4 (06:27→18:00)
[2019-12-29 07:05] LABS: Basophils # (auto) 0.1 10 ^3/uL (0-0.2); Eosinophils # (auto) 0.1 10 ^3/uL (0-0.8); Eosinophils % (auto) 2.1 % (0.0-7.0); Hematocrit 32.3 % (41.0-53.0); Hemoglobin 9.4 g/dL (13.5-17.5); Lymphocytes % (auto) 17.2 % (10.0-50.0); Mean Corpuscular Hemoglobin 22.2 pg (28.0-32.0); Mean Corpuscular Hgb Conc. 29.2 g/dL (32.0-36.0); Monocytes # (auto) 0.4 10 ^3/uL (0-1.3); Monocytes % (auto) 7.2 % (0.0-12.0); Neutrophils # (auto) 4.2 10 ^3/uL (1.6-8.6); Neutrophils % (auto) 72.5 % (37.0-80.0); Platelet Count (auto) 313 10^3/uL (140-450); Red Blood Cells 4.25 10^6/uL (4.5-5.90); White Blood Cell 5.8 10^3/uL (4.4-10.8)
[2019-12-29 07:10] LABS: Red Cell Distribution Width 25.5 % (11.8-14.3)
[2019-12-29 07:15] LABS: Potassium 4.2 mmol/L (3.5-5.1)
[2019-12-29 07:26] LABS: BUN/Creatinine Ratio 29.3; Bilirubin, Total 0.4 mg/dL (0.2-1.0); Calcium 8.3 mg/dL (8.5-10.1); Magnesium 2.3 mg/dL (1.6-2.6); Phosphorus 3.9 mg/dL (2.5-4.90); Total Protein 6.3 g/dL (6.4-8.2)
[2019-12-29] MEDS: PANTOPRAZOLE 40 MG TAB PO SCH (09:46)
[2019-12-29] MEDS: ENOXAPARIN SOD 30 MG/0.3 ML SYRINGE SC SCH (09:47)
[2019-12-29] MEDS: METOPROLOL TARTRATE 25 MG TAB PO SCH (09:47)
[2019-12-29] MEDS: BRIMONIDINE 0.2% OPTH Soln 5ml RIGHTEYE SCH (09:48)
[2019-12-29] MEDS: SODIUM CHLOR 0.9% PF (SALINE LOCK) 10ML VIAL/SYR IV SCH ×2 (09:48→22:00)
[2019-12-29] MEDS: TIMOLOL MAL 0.5% OPTH(EYE) SOL 5ML RIGHTEYE SCH (09:48)
[2019-12-29] MEDS: INSULIN LANTUS (GLARGINE) 1 /0.01ml (100units/ml) SC SCH (09:53)
[2019-12-29 13:00] VITALS: BP 116/78
[2019-12-29 16:55] VITALS: BP 144/78
[2019-12-29 22:00] VITALS: BP 124/57
[2019-12-30] MEDS: METOPROLOL TARTRATE 25 MG TAB PO SCH ×3 (00:20→22:23)
[2019-12-30] MEDS: LATANOPROST 0.005 % OPTH(EYE) SOL 2.5ML RIGHTEYE SCH ×2 (00:21→23:43)
[2019-12-30] MEDS: BRIMONIDINE 0.2% OPTH Soln 5ml RIGHTEYE SCH ×3 (00:21→23:42)
[2019-12-30] MEDS: TIMOLOL MAL 0.5% OPTH(EYE) SOL 5ML RIGHTEYE SCH ×3 (00:21→23:42)
[2019-12-30 05:00] VITALS: BP 122/52
[2019-12-30] MEDS: InsuLIN REG 1unit/0.01ml Soln (100units/ml) SC SCH ×5 (06:00→23:54)
[2019-12-30] MEDS: ACCU-CHEK COMFORT CURVE STRIP VI SCH ×5 (06:00→23:54)
[2019-12-30 09:00] VITALS: BP 142/75
[2019-12-30] MEDS: ENOXAPARIN SOD 30 MG/0.3 ML SYRINGE SC SCH (09:36)
[2019-12-30] MEDS: ACETAMINOPHEN 500 MG TAB PO PRN ×2 (09:36→23:58)
[2019-12-30] MEDS: INSULIN LANTUS (GLARGINE) 1 /0.01ml (100units/ml) SC SCH (09:37)
[2019-12-30] MEDS: PANTOPRAZOLE 40 MG TAB PO SCH (09:38)
[2019-12-30] MEDS: SODIUM CHLOR 0.9% PF (SALINE LOCK) 10ML VIAL/SYR IV SCH ×2 (09:39→22:23)
[2019-12-30 12:49] VITALS: BP 106/55
[2019-12-30 16:34] VITALS: BP 128/61
[2019-12-30] MEDS: LORazepam 2MG/ML-1ML VIAL IV PRN (17:38)
[2019-12-30 22:00] VITALS: BP 124/64
[2019-12-31 05:00] VITALS: BP 127/71
[2019-12-31] MEDS: ACCU-CHEK COMFORT CURVE STRIP VI SCH ×2 (06:00→11:18)
[2019-12-31] MEDS: InsuLIN REG 1unit/0.01ml Soln (100units/ml) SC SCH ×2 (06:00→11:18)
[2019-12-31 08:00] VITALS: BP 121/64
[2019-12-31 09:00] VITALS: BP 128/78
[2019-12-31] MEDS: SODIUM CHLOR 0.9% PF (SALINE LOCK) 10ML VIAL/SYR IV SCH (09:25)
[2019-12-31] MEDS: INSULIN LANTUS (GLARGINE) 1 /0.01ml (100units/ml) SC SCH (09:30)
[2019-12-31] MEDS: ENOXAPARIN SOD 30 MG/0.3 ML SYRINGE SC SCH (09:30)
[2019-12-31] MEDS: BRIMONIDINE 0.2% OPTH Soln 5ml RIGHTEYE SCH (09:31)
[2019-12-31] MEDS: METOPROLOL TARTRATE 25 MG TAB PO SCH (09:31)
[2019-12-31] MEDS: PANTOPRAZOLE 40 MG TAB PO SCH (09:31)
[2019-12-31] MEDS: TIMOLOL MAL 0.5% OPTH(EYE) SOL 5ML RIGHTEYE SCH (09:32)
[2019-12-31 13:00] VITALS: BP 142/68
[2019-12-31 13:09] VITALS: BP 128/78
== END 2019-12-31 15:20 | disposition hospice, home (50) | DRG 329 ==
LOC: ER 15:00 → TELE 15:01 → TELE-WESTW 17:16
PROVIDERS: ADMIT Internal Medicine; ATTEND Internal Medicine
PROC: 0DJ08ZZ Inspection of Upper Intestinal Tract, Via Natural or Artificial Opening Endoscopic (ICD-10-PCS; 2019-12-09)
PROC: 30230N1 Transfusion of Nonautologous Red Blood Cells into Peripheral Vein, Open Approach (ICD-10-PCS; principal; 2019-12-09 09:49)
PROC: 0DBF8ZX Excision of Right Large Intestine, Via Natural or Artificial Opening Endoscopic, Diagnostic (ICD-10-PCS; 2019-12-09 09:49)
PROC: 0DTF4ZZ Resection of Right Large Intestine, Percutaneous Endoscopic Approach (ICD-10-PCS; 2019-12-16)
PROC: 5A1935Z Respiratory Ventilation, Less than 24 Consecutive Hours (ICD-10-PCS; 2019-12-16)
PROC: 0D1L4Z4 Bypass Transverse Colon to Cutaneous, Percutaneous Endoscopic Approach (ICD-10-PCS; 2019-12-16)
PROC: 0BH17EZ Insertion of Endotracheal Airway into Trachea, Via Natural or Artificial Opening (ICD-10-PCS; 2019-12-16)
DX: K92.2 Gastrointestinal hemorrhage, unspecified (principal); I50.31 Acute diastolic (congestive) heart failure; J15.20 Pneumonia due to staphylococcus, unspecified; I48.20 Chronic atrial fibrillation, unspecified; E44.0 Moderate protein-calorie malnutrition; D68.69 Other thrombophilia; M86.8X7 Other osteomyelitis, ankle and foot; K63.9 Disease of intestine, unspecified; D64.9 Anemia, unspecified; E11.9 Type 2 diabetes mellitus without complications; G89.29 Other chronic pain; G47.30 Sleep apnea, unspecified; I11.0 Hypertensive heart disease with heart failure; N40.0 Benign prostatic hyperplasia without lower urinary tract symptoms; M51.36 Other intervertebral disc degeneration, lumbar region; E66.9 Obesity, unspecified; R00.1 Bradycardia, unspecified; E78.5 Hyperlipidemia, unspecified; R56.9 Unspecified convulsions; Z51.5 Encounter for palliative care; K64.8 Other hemorrhoids; I35.1 Nonrheumatic aortic (valve) insufficiency; D50.9 Iron deficiency anemia, unspecified; G47.33 Obstructive sleep apnea (adult) (pediatric); E87.6 Hypokalemia; M54.9 Dorsalgia, unspecified; Z92.3 Personal history of irradiation; Z85.46 Personal history of malignant neoplasm of prostate; Z86.73 Personal history of transient ischemic attack (TIA), and cerebral infarction without residual deficits; Z68.32 Body mass index [BMI] 32.0-32.9, adult; Z88.8 Allergy status to other drugs, medicaments and biological substances; Z79.899 Other long term (current) drug therapy; Z89.422 Acquired absence of other left toe(s); Z88.1 Allergy status to other antibiotic agents; Z81.1 Family history of alcohol abuse and dependence
CPT/HCPCS: 36415; 36569; 36600; 71045; 74018; 74176; 74250; 80048; 80053; 81001; 82040; 82150; 82270; 82378; 82728; 82805; 82962; 83036; 83540; 83550; 83615; 83690; 83735; 84100; 84132; 84478; 85014; 85018; 85025; 85045; 85610; 85652; 85730; 86141; 86850; 86900; 86901; 86920; 87070; 87077; 87186; 87205; 93005; 93306; 94002; 94003; 94640; 94760; 94762; 97110; 97116; 97163; 97530; C9113; G0378; J0131; J1815; J1956; J2001; J2250; J2405; J2704; J3480; J3490; J7060; J7131; Q9956

== ENCOUNTER → 2019-12-04 | Outpatient (CLI) | payer OTHER ==
[2019-12-04 12:40] LABS: Basophils # (auto) 0.1 10 ^3/uL (0-0.2); Basophils % (auto) 1.5 % (0.0-2.0); Eosinophils # (auto) 0.1 10 ^3/uL (0-0.8); Hematocrit 20.8 % (41.0-53.0); Monocytes # (auto) 0.4 10 ^3/uL (0-1.3); Neutrophils # (auto) 3.6 10 ^3/uL (1.6-8.6); Nucleated Red Blood Cells % 0.1 %; Platelet Count (auto) 302 10^3/uL (140-450)
[2019-12-04 12:42] LABS: Eosinophils % (auto) 1.5 % (0.0-7.0); Lymphocytes # (auto) 1.4 10 ^3/uL (0.4-5.4); Lymphocytes % (auto) 24.4 % (10.0-50.0); Mean Corpuscular Hemoglobin 19.9 pg (28.0-32.0); Mean Corpuscular Hgb Conc. 29.3 g/dL (32.0-36.0); Monocytes % (auto) 7.9 % (0.0-12.0); Neutrophils % (auto) 64.7 % (37.0-80.0); Red Blood Cells 3.06 10^6/uL (4.5-5.90); Red Cell Distribution Width 19.3 % (11.8-14.3); White Blood Cell 5.6 10^3/uL (4.4-10.8)
[2019-12-04 12:56] LABS: INR 1.03 (0.9-1.15); Partial Thromboplastin Time 25.4 sec (23.64-32.05); Urine Bacteria NONE SEEN /hpf (None Seen); Urine Blood Negative /uL (Negative); Urine Mucus FEW (None Seen); Urine Specific Gravity 1.027 (1.001-1.035); Urine WBC <1 /hpf (0 - 3)
[2019-12-04 13:07] LABS: Albumin 3.1 g/dL (3.4-5.0); Calcium 8.6 mg/dL (8.5-10.1); Potassium 4.8 mmol/L (3.5-5.1)
[2019-12-04 13:10] LABS: Bilirubin, Total 0.3 mg/dL (0.2-1.0); Total Protein 7.2 g/dL (6.4-8.2)
[2019-12-04 13:14] LABS: Hemoglobin 6.1 g/dL (13.5-17.5)
== END | disposition home or self-care (01) ==
LOC: LAB 12:23
PROVIDERS: ATTEND Nurse Practitioner
DX: Z01.818 Encounter for other preprocedural examination (principal)
CPT/HCPCS: 36415; 80053; 81001; 85025; 85610; 85730